=== PATIENT | female | born 1930 | race Caucasian/White ===

== ENCOUNTER 2017-10-13 18:32 | Emergency (ER) | payer MEDICARE, OTHER ==
[~2017-10-13] VITALS: Ht 167.6 cm; Wt 76.2 kg
[~2017-10-13 18:32] MED LIST: ACET325 PO; ACTOS; ALBU3IS INH; AMOCLA500 PO; ATOR10 PO; Albuterol2.5 MG/0.5 INH; BENZ100A PO; BUPR100ER PO; Bactrim Ds Tab1 EACH PO; CALCNI; CELE200 PO; CEPH500 PO; CHOL10002 PO; CVS DISPOSABLE399 ML UD; Citalopram HBr10 MG PO; Citrate Of Mag300 ML PO; DICLOFENAC; DILT240 PO; DOC250 PO; DOCU100 PO; DULO30 PO; DULO60 PO; ELIQUIS2.5 MG; ELIQUIS2.5 MG PO; ENDOCET; ERGO400; ERGO400 PO; EZET10 PO; EZET10-10 PO; EZET10-20 PO; FENT25TP TOP; Flomax0.4 MG PO; GABA100; GABA100 PO; GLIM2; GUAI600T33 PO; HYDACE5 PO; HYDROCODONE; KETO10 PO; Keflex500 MG PO; LAVAP17G PO; LEVFLO250 PO; LEVFLO500 PO; LISI10; LISI10 PO; LISI5 PO; LOPE2C PO; LORA.5 PO; Lopressor 25 mg25 MG PO; MELA3 PO; METF500; METF500 PO; METF500C PO; Multivitamin1 EAC1 PO; NITR100 PO; Norco 5-325 Ta1 EACH PO; OMEP40CA12 PO; ONDA8 PO; OXYACE5T; OXYACE5T PO; OXYACE7.5T; OXYACE7.5T PO; OXYC20ER PO; OXYC5 PO; Omeprazole20 M1 PO; Oxycodone HCl5 M1; PIOG45 PO; POLY17UD PO; PRED10 PO; PREG75; PROM25 PO; Percocet 5-3251 EACH PO; Percocet 7.5-31 EACH PO; Prinivil10 MG PO; QUIN10; RABE20 PO; ROSU10TA; SIMV20 PO; TAMS.4ER PO; TRAM50 PO; ULTRA-LIGHT RO1 EACH MC; VITORIN; WARF1; WARF10; WARF2.5 PO; WARF5; WARF5 PO; WARF7.5 PO; ZOLP10 PO; Zofran Odt4 MG SL; Zofran4 MG PO; [UNRECOGNIZED DRUG - OTHER]; [UNRECOGNIZED DRUG - REMARK]
[2018-03-09] MEDS ORDERED: Advair Hfa 230-12 GM INH (15:22)
[2018-03-09] MEDS ORDERED: BUPR100ER PO (15:23)
[2018-03-10] MEDS ORDERED: OXYC5 PO (01:25)
[2018-03-10] MEDS ORDERED: LEVFLO500 PO (14:05)
[2018-03-10] MEDS ORDERED: FURO20 PO (14:05)
[2018-03-10] MEDS ORDERED: Micro-K10 MEQ PO (14:08)
[2018-06-17] MEDS ORDERED: FURO40 PO (21:01)
[2018-06-17] MEDS ORDERED: DAIRY RELIE9000 UNIT PO (21:02)
[2018-06-18] MEDS ORDERED: ANTACID PLUS A355 M1 PO (08:22)
[2018-06-18] MEDS ORDERED: BISA10S PR (08:22)
[2018-06-18] MEDS ORDERED: Voltaren100 GM TOP (08:23)
[2018-06-18] MEDS ORDERED: ALBU3IS INH (08:24)
[2018-06-18] MEDS ORDERED: Senna Concentr8.6 MG PO (08:25)
[2018-06-18] MEDS ORDERED: Milk Of Ma400 MG/5 M PO (08:25)
[2018-06-18] MEDS ORDERED: LOPE2C PO (08:25)
[2018-06-21] MEDS ORDERED: DULERA 200 MCG/13 GM INH (15:02)
[2018-06-21] MEDS ORDERED: BENZ100A PO (15:12)
[2018-06-21] MEDS ORDERED: GUAI600T33 PO (15:13)
[2018-06-21] MEDS ORDERED: LEVOFLOXACIN250 MG PO (15:13)
[2018-06-21] MEDS ORDERED: Pedi-Dri 100,0060 GM TOP (15:14)
[2018-06-21] MEDS ORDERED: PRED20 (15:17)
== END 2017-10-13 20:32 | disposition home or self-care (01) ==
LOC: ER 18:32
DX: S52.572A Other intraarticular fracture of lower end of left radius, initial encounter for closed fracture (principal); E11.9 Type 2 diabetes mellitus without complications; I10 Essential (primary) hypertension; I48.91 Unspecified atrial fibrillation; F17.210 Nicotine dependence, cigarettes, uncomplicated; Z79.899 Other long term (current) drug therapy; Z96.641 Presence of right artificial hip joint; Z90.712 Acquired absence of cervix with remaining uterus; Z90.49 Acquired absence of other specified parts of digestive tract; W18.30XA Fall on same level, unspecified, initial encounter
CPT/HCPCS: 29125; 73080; 73110; 73130; 99283; J3010

== ENCOUNTER 2017-10-15 11:52 | Emergency (ER) | payer MEDICARE, OTHER ==
[~2017-10-15] VITALS: Ht 157.5 cm; Wt 77.1 kg
[2018-03-09] MEDS ORDERED: Advair Hfa 230-12 GM INH (15:22)
[2018-03-09] MEDS ORDERED: BUPR100ER PO (15:23)
[2018-03-10] MEDS ORDERED: OXYC5 PO (01:25)
[2018-03-10] MEDS ORDERED: FURO20 PO (14:05)
[2018-03-10] MEDS ORDERED: LEVFLO500 PO (14:05)
[2018-03-10] MEDS ORDERED: Micro-K10 MEQ PO (14:08)
[2018-06-17] MEDS ORDERED: FURO40 PO (21:01)
[2018-06-17] MEDS ORDERED: DAIRY RELIE9000 UNIT PO (21:02)
[2018-06-18] MEDS ORDERED: BISA10S PR (08:22)
[2018-06-18] MEDS ORDERED: ANTACID PLUS A355 M1 PO (08:22)
[2018-06-18] MEDS ORDERED: Voltaren100 GM TOP (08:23)
[2018-06-18] MEDS ORDERED: ALBU3IS INH (08:24)
[2018-06-18] MEDS ORDERED: Milk Of Ma400 MG/5 M PO (08:25)
[2018-06-18] MEDS ORDERED: LOPE2C PO (08:25)
[2018-06-18] MEDS ORDERED: Senna Concentr8.6 MG PO (08:25)
[2018-06-21] MEDS ORDERED: DULERA 200 MCG/13 GM INH (15:02)
[2018-06-21] MEDS ORDERED: BENZ100A PO (15:12)
[2018-06-21] MEDS ORDERED: GUAI600T33 PO (15:13)
[2018-06-21] MEDS ORDERED: LEVOFLOXACIN250 MG PO (15:13)
[2018-06-21] MEDS ORDERED: Pedi-Dri 100,0060 GM TOP (15:14)
[2018-06-21] MEDS ORDERED: PRED20 (15:17)
== END 2017-10-15 16:44 | disposition home or self-care (01) ==
LOC: ER 11:52
DX: T18.128A Food in esophagus causing other injury, initial encounter (principal); I10 Essential (primary) hypertension; E11.9 Type 2 diabetes mellitus without complications; I48.91 Unspecified atrial fibrillation; F17.210 Nicotine dependence, cigarettes, uncomplicated; Z79.899 Other long term (current) drug therapy; Z79.52 Long term (current) use of systemic steroids
CPT/HCPCS: 36415; 71046; 96374; 96375; 99283; J1610; J2060; J2405

== ENCOUNTER 2017-10-18 17:02 | Inpatient (IN) | payer MEDICARE, OTHER ==
[~2017-10-18] VITALS: Ht 167.6 cm; Wt 79.9 kg
[2017-10-18 18:46] LABS: Hematocrit 32.5 % (33.0-51.0); Hemoglobin 9.9 g/dL (11.5-16.0); Mean Corpuscular HGB 31.5 pg (26.0-34.0); Mean Corpuscular HGB Conc 30.5 g/dL (31.5-36.5); Mean Corpuscular Volume 104 fL (80-100); Mean Platelet Volume 9.3 fL (9.1-12.4); NRBC ABSOLUTE 0.04 K/mm3 (0.00-0.02); NRBC Auto 0.7 /100 WBC (0.0-0.2); Platelet Count 362 K/mm3 (150-400); RDW Coefficient Variation 15.5 % (11.7-14.2); RDW Standard Deviation 58.2 fL (35.1-46.3); Red Blood Cell Count 3.14 M/mm3 (3.80-5.20); White Blood Cell Count 6.11 K/mm3 (4.00-11.30)
[2017-10-18 19:15] LABS: Albumin, Blood 3.5 g/dL (3.4-5.0); Albumin/Globulin Ratio 0.9 (0.8-1.8); Bilirubin, Total 0.5 mg/dL (0.1-1.0); Bun/Creatinine Ratio 30.5 (12.0-20.0); Calcium, Blood 8.7 mg/dL (8.5-10.1); Creatinine, Blood 1.64 mg/dL (0.40-1.00); Globulin, Blood 3.8 g/dL (2.2-4.0); Magnesium, Blood 2.2 mg/dL (1.6-2.4); Phosphorus, Blood 4.5 mg/dL (2.5-4.9); Potassium, Blood 5.1 mmol/L (3.5-5.5); Total Protein, Blood 7.3 g/dL (6.4-8.2)
[2017-10-18 19:18] LABS: Thyroid Stimulating Hormone 1.72 uIU/mL (0.360-4.800)
[2017-10-19] MEDS ORDERED: ALBU3IS INH (00:23)
[2017-10-19] MEDS ORDERED: HYDR1TAB94 PO (00:27)
[2017-10-19 05:38] LABS: Bun/Creatinine Ratio 30.6 (12.0-20.0); Calcium, Blood 8.6 mg/dL (8.5-10.1); Creatinine, Blood 1.47 mg/dL (0.40-1.00); Potassium, Blood 4.5 mmol/L (3.5-5.5)
[2017-10-20 22:12] LABS: Source, Urine Clean Catch
[2017-10-20 22:15] LABS: Bilirubin, Urine Neg (Neg); Blood, Urine 5+ (Neg); Glucose Qualitative, Urine Neg (Neg); Ketones, Urine Neg (Neg); Leukocyte Esterase, Urine 3+ (Neg); Nitrite, Urine Neg (Neg); Protein, Urine 2+ (Neg); Urobilinogen, Urine NORM (Normal)
[2017-10-20 22:38] LABS: Appearance, Urine Cloudy (Clear); Color, Urine Yellow (P-Yellow)
[2017-10-20 22:39] LABS: Bacteria Mod /hpf; Squamous Epithelial Cells Few /hpf (Few)
[2017-10-21 05:32] LABS: BASOPHILS ABSOLUTE AUTO 0.02 K/mm3 (0.00-0.23); BASOPHILS PERCENT AUTO 0 % (0-2); EOSINOPHILS ABSOLUTE AUTO 0.03 K/mm3 (0.00-0.68); EOSINOPHILS PERCENT AUTO 0 % (0-6); Hematocrit 32.2 % (33.0-51.0); IMMATURE GRAN ABSOLUTE AUTO 0.05 K/mm3 (0.00-0.10); IMMATURE GRAN PERCENT AUTO 1 % (0-1); LYMPHOCYTES ABSOLUTE AUTO 1.31 K/mm3 (0.84-5.20); LYMPHOCYTES PERCENT AUTO 18 % (21-46); MONOCYTES ABSOLUTE AUTO 0.51 K/mm3 (0.16-1.47); MONOCYTES PERCENT AUTO 7 % (4-13); Mean Corpuscular HGB 31.3 pg (26.0-34.0); Mean Corpuscular HGB Conc 31.1 g/dL (31.5-36.5); NEUTROPHILS ABSOLUTE AUTO 5.53 K/mm3 (1.96-9.15); NEUTROPHILS PERCENT AUTO 74 % (41-73); NRBC ABSOLUTE 0.05 K/mm3 (0.00-0.02); NRBC Auto 0.7 /100 WBC (0.0-0.2); Platelet Count 375 K/mm3 (150-400); RDW Coefficient Variation 15.6 % (11.7-14.2); RDW Standard Deviation 56.5 fL (35.1-46.3); Red Blood Cell Count 3.19 M/mm3 (3.80-5.20); White Blood Cell Count 7.45 K/mm3 (4.00-11.30)
[2017-10-21 05:33] LABS: Mean Corpuscular Volume 101 fL (80-100)
[2017-10-21 06:17] LABS: Albumin, Blood 3.4 g/dL (3.4-5.0); Albumin/Globulin Ratio 0.9 (0.8-1.8); Bilirubin, Total 0.9 mg/dL (0.1-1.0); Bun/Creatinine Ratio 31.1 (12.0-20.0); Calcium, Blood 9.2 mg/dL (8.5-10.1); Creatinine, Blood 1.03 mg/dL (0.40-1.00); Globulin, Blood 3.8 g/dL (2.2-4.0); Potassium, Blood 4.8 mmol/L (3.5-5.5); Total Protein, Blood 7.2 g/dL (6.4-8.2); Troponin I 0.023 ng/mL (0.000-0.040)
[2017-10-22 05:33] LABS: BASOPHILS ABSOLUTE AUTO 0.02 K/mm3 (0.00-0.23); BASOPHILS PERCENT AUTO 0 % (0-2); EOSINOPHILS ABSOLUTE AUTO 0.07 K/mm3 (0.00-0.68); EOSINOPHILS PERCENT AUTO 1 % (0-6); Hematocrit 32.8 % (33.0-51.0); Hemoglobin 10.3 g/dL (11.5-16.0); IMMATURE GRAN ABSOLUTE AUTO 0.07 K/mm3 (0.00-0.10); IMMATURE GRAN PERCENT AUTO 1 % (0-1); LYMPHOCYTES ABSOLUTE AUTO 1.17 K/mm3 (0.84-5.20); LYMPHOCYTES PERCENT AUTO 14 % (21-46); MONOCYTES PERCENT AUTO 7 % (4-13); Mean Corpuscular HGB Conc 31.4 g/dL (31.5-36.5); Mean Corpuscular Volume 99 fL (80-100); Mean Platelet Volume 9.3 fL (9.1-12.4); NEUTROPHILS PERCENT AUTO 77 % (41-73); NRBC ABSOLUTE 0.04 K/mm3 (0.00-0.02); NRBC Auto 0.5 /100 WBC (0.0-0.2); Platelet Count 376 K/mm3 (150-400); RDW Coefficient Variation 15.9 % (11.7-14.2); RDW Standard Deviation 56.1 fL (35.1-46.3); Red Blood Cell Count 3.32 M/mm3 (3.80-5.20); White Blood Cell Count 8.23 K/mm3 (4.00-11.30)
[2017-10-22 06:03] LABS: Alanine Aminotransfer (ALT/SGP 18 U/L (12-78); Albumin, Blood 3.3 g/dL (3.4-5.0); Albumin/Globulin Ratio 0.8 (0.8-1.8); Alk Phos 81 U/L (50-136); Anion Gap 8 mmol/L (6-16); Aspartate Aminotrans (AST/SGOT 22 U/L (12-37); Bilirubin, Total 0.8 mg/dL (0.1-1.0); Blood Urea Nitrogen 27 mg/dL (8-24); Bun/Creatinine Ratio 29.4 (12.0-20.0); CO2, Blood 25 mmol/L (21-32); Chloride, Blood 108 mmol/L (98-108); Creatinine, Blood 0.92 mg/dL (0.40-1.00); Glomerular Filtration Rate >60 (60-); Glucose, Blood 111 mg/dL (70-99); Potassium, Blood 4.1 mmol/L (3.5-5.5); Sodium, Blood 141 mmol/L (136-145); Total Protein, Blood 7.3 g/dL (6.4-8.2)
[2017-10-23] MEDS ORDERED: BENZ100A PO (13:10)
[2017-10-23] MEDS ORDERED: ESCI10 PO (13:10)
[2017-10-23] MEDS ORDERED: BISA10S PR (13:10)
[2017-10-23] MEDS ORDERED: Senna-Extra17.2 MG PO (13:11)
[2017-10-23] MEDS ORDERED: CEFU250T47 PO (13:11)
[2017-10-23] MEDS ORDERED: Milk Of Ma400 MG/5 M PO (13:12)
[2018-03-09] MEDS ORDERED: Advair Hfa 230-12 GM INH (15:22)
[2018-03-09] MEDS ORDERED: BUPR100ER PO (15:23)
[2018-03-10] MEDS ORDERED: OXYC5 PO (01:25)
[2018-03-10] MEDS ORDERED: LEVFLO500 PO (14:05)
[2018-03-10] MEDS ORDERED: FURO20 PO (14:05)
[2018-03-10] MEDS ORDERED: Micro-K10 MEQ PO (14:08)
[2018-06-17] MEDS ORDERED: FURO40 PO (21:01)
[2018-06-17] MEDS ORDERED: DAIRY RELIE9000 UNIT PO (21:02)
[2018-06-18] MEDS ORDERED: ANTACID PLUS A355 M1 PO (08:22)
[2018-06-18] MEDS ORDERED: BISA10S PR (08:22)
[2018-06-18] MEDS ORDERED: Voltaren100 GM TOP (08:23)
[2018-06-18] MEDS ORDERED: ALBU3IS INH (08:24)
[2018-06-18] MEDS ORDERED: Milk Of Ma400 MG/5 M PO (08:25)
[2018-06-18] MEDS ORDERED: Senna Concentr8.6 MG PO (08:25)
[2018-06-18] MEDS ORDERED: LOPE2C PO (08:25)
[2018-06-21] MEDS ORDERED: DULERA 200 MCG/13 GM INH (15:02)
[2018-06-21] MEDS ORDERED: BENZ100A PO (15:12)
[2018-06-21] MEDS ORDERED: LEVOFLOXACIN250 MG PO (15:13)
[2018-06-21] MEDS ORDERED: GUAI600T33 PO (15:13)
[2018-06-21] MEDS ORDERED: Pedi-Dri 100,0060 GM TOP (15:14)
[2018-06-21] MEDS ORDERED: PRED20 (15:17)
== END 2017-10-23 13:02 | DRG 91 ==
LOC: MEDS 17:02 → ENPENDDIS 10-23 12:06 → MEDS 10-23 13:02
PROVIDERS: Family Medicine; Internal Medicine
DX: G92 Toxic encephalopathy (principal); J18.9 Pneumonia, unspecified organism; E11.22 Type 2 diabetes mellitus with diabetic chronic kidney disease; I48.2 Chronic atrial fibrillation; N18.3 Chronic kidney disease, stage 3 (moderate); J44.0 Chronic obstructive pulmonary disease with (acute) lower respiratory infection; J44.1 Chronic obstructive pulmonary disease with (acute) exacerbation; S52.502D Unspecified fracture of the lower end of left radius, subsequent encounter for closed fracture with routine healing; S62.002D Unspecified fracture of navicular [scaphoid] bone of left wrist, subsequent encounter for fracture with routine healing; T40.2X5A Adverse effect of other opioids, initial encounter; Y92.239 Unspecified place in hospital as the place of occurrence of the external cause; R53.81 Other malaise; F43.9 Reaction to severe stress, unspecified; I12.9 Hypertensive chronic kidney disease with stage 1 through stage 4 chronic kidney disease, or unspecified chronic kidney disease; M19.90 Unspecified osteoarthritis, unspecified site; F41.9 Anxiety disorder, unspecified; F32.9 Major depressive disorder, single episode, unspecified; I35.0 Nonrheumatic aortic (valve) stenosis; R33.9 Retention of urine, unspecified; W18.30XD Fall on same level, unspecified, subsequent encounter; Z60.8 Other problems related to social environment; Z66 Do not resuscitate; Z79.02 Long term (current) use of antithrombotics/antiplatelets; Z79.891 Long term (current) use of opiate analgesic; Z78.1 Physical restraint status; Z79.899 Other long term (current) drug therapy
CPT/HCPCS: 36415; 70450; 71046; 80048; 80053; 81001; 82140; 83605; 83735; 84100; 84443; 84484; 85025; 85027; 85651; 87086; 92610; 94640; 94760; 97116; 97162; 97166; 97530; 97535; G8978; G8979; G8987; G8988; G8996; G8997; G8998; J0696; J2060; J7030

== ENCOUNTER 2017-11-29 17:02 | Inpatient (IN) | payer MEDICARE, OTHER ==
[~2017-11-29] VITALS: Ht 167.6 cm; Wt 74.8 kg
[~2017-11-29 17:02] MED LIST changes: -ACET325 PO; +ACET500 PO; +BISA10S PR; +CEFU250T47 PO; +ESCI10 PO; +HYDR1TAB94 PO; +Milk Of Ma400 MG/5 M PO; +Omeprazole20 M1; -Omeprazole20 M1 PO; +Senna-Extra17.2 MG PO
[2017-11-29] MEDS ORDERED: ESCI20 PO (17:18)
[2017-11-29 17:58] LABS: Source, Urine Clean Catch
[2017-11-29 17:59] LABS: BASOPHILS ABSOLUTE AUTO 0.01 K/mm3 (0.00-0.23); BASOPHILS PERCENT AUTO 0 % (0-2); EOSINOPHILS PERCENT AUTO 2 % (0-6); Hematocrit 32.4 % (33.0-51.0); Hemoglobin 9.9 g/dL (11.5-16.0); IMMATURE GRAN ABSOLUTE AUTO 0.02 K/mm3 (0.00-0.10); IMMATURE GRAN PERCENT AUTO 0 % (0-1); LYMPHOCYTES ABSOLUTE AUTO 1.47 K/mm3 (0.84-5.20); LYMPHOCYTES PERCENT AUTO 25 % (21-46); MONOCYTES ABSOLUTE AUTO 0.37 K/mm3 (0.16-1.47); MONOCYTES PERCENT AUTO 6 % (4-13); Mean Corpuscular HGB 29.2 pg (26.0-34.0); Mean Corpuscular HGB Conc 30.6 g/dL (31.5-36.5); Mean Corpuscular Volume 96 fL (80-100); Mean Platelet Volume 9.1 fL (9.1-12.4); NEUTROPHILS ABSOLUTE AUTO 3.87 K/mm3 (1.96-9.15); NEUTROPHILS PERCENT AUTO 66 % (41-73); Platelet Count 395 K/mm3 (150-400); RDW Standard Deviation 51.9 fL (35.1-46.3); Red Blood Cell Count 3.39 M/mm3 (3.80-5.20); White Blood Cell Count 5.84 K/mm3 (4.00-11.30)
[2017-11-29 18:00] LABS: Appearance, Urine Hazy (Clear); Bilirubin, Urine Neg (Neg); Blood, Urine 5+ (Neg); Color, Urine Yellow (P-Yellow); Glucose Qualitative, Urine Neg (Neg); Ketones, Urine Neg (Neg); Leukocyte Esterase, Urine 2+ (Neg); Nitrite, Urine Neg (Neg); Protein, Urine 2+ (Neg); Urobilinogen, Urine 2+ (Normal)
[2017-11-29 18:08] LABS: Bacteria Mod /hpf; Red Blood Cells, Urine 25-50 /hpf (0-2); Squamous Epithelial Cells Mod /hpf (Few)
[2017-11-29 18:16] LABS: Albumin, Blood 3.3 g/dL (3.4-5.0); Albumin/Globulin Ratio 0.9 (0.8-1.8); Bilirubin, Total 0.4 mg/dL (0.1-1.0); Bun/Creatinine Ratio 24.2 (12.0-20.0); Creatinine, Blood 1.2 mg/dL (0.40-1.00); Globulin, Blood 3.8 g/dL (2.2-4.0); Potassium, Blood 4.4 mmol/L (3.5-5.5); Total Protein, Blood 7.1 g/dL (6.4-8.2)
[2017-11-30 05:41] LABS: Bun/Creatinine Ratio 23.4 (12.0-20.0); Calcium, Blood 8.5 mg/dL (8.5-10.1); Creatinine, Blood 1.07 mg/dL (0.40-1.00)
[2017-12-06 05:46] LABS: Bun/Creatinine Ratio 23.6 (12.0-20.0); Calcium, Blood 9.1 mg/dL (8.5-10.1); Creatinine, Blood 1.1 mg/dL (0.40-1.00)
[2017-12-07] MEDS ORDERED: QUET25 PO (11:27)
== END 2017-12-07 12:05 | disposition hospice, home (50) | DRG 885 ==
LOC: ER 17:02 → MEDS 17:03 → ENPENDDIS 12-07 10:11 → MEDS 12-07 12:05
PROVIDERS: Emergency Medicine; Internal Medicine; Student in an Organized Health Care Education/Training Program
DX: F33.0 Major depressive disorder, recurrent, mild (principal); N17.9 Acute kidney failure, unspecified; I48.91 Unspecified atrial fibrillation; B96.1 Klebsiella pneumoniae [K. pneumoniae] as the cause of diseases classified elsewhere; N39.0 Urinary tract infection, site not specified; B96.89 Other specified bacterial agents as the cause of diseases classified elsewhere; F43.21 Adjustment disorder with depressed mood; R91.8 Other nonspecific abnormal finding of lung field; N18.3 Chronic kidney disease, stage 3 (moderate); I12.9 Hypertensive chronic kidney disease with stage 1 through stage 4 chronic kidney disease, or unspecified chronic kidney disease; F17.210 Nicotine dependence, cigarettes, uncomplicated
CPT/HCPCS: 36415; 71046; 80048; 80053; 81001; 82947; 83605; 85025; 87040; 87077; 87086; 87186; 94640; 94760; 96374; 97110; 97116; 97163; 97166; 97530; 97535; 99285; G8978; G8979; G8987; G8988; J1956; J7030

== ENCOUNTER 2018-03-23 15:45 | Emergency (ER) | payer MEDICARE, OTHER ==
[~2018-03-23] VITALS: Ht 167.6 cm; Wt 74.4 kg
[~2018-03-23 15:45] MED LIST changes: +ACET325 PO; -ACET500 PO; +Advair Hfa 230-12 GM; +ESCI20 PO; +FURO20 PO; +Micro-K10 MEQ PO; +OXYC5; +QUET25 PO
[2018-03-23 16:15] LABS: BASOPHILS ABSOLUTE AUTO 0.01 K/mm3 (0.00-0.23); BASOPHILS PERCENT AUTO 0 % (0-2); EOSINOPHILS ABSOLUTE AUTO 0.18 K/mm3 (0.00-0.68); EOSINOPHILS PERCENT AUTO 3 % (0-6); Hemoglobin 9.5 g/dL (11.5-16.0); IMMATURE GRAN ABSOLUTE AUTO 0.03 K/mm3 (0.00-0.10); IMMATURE GRAN PERCENT AUTO 0 % (0-1); LYMPHOCYTES ABSOLUTE AUTO 2.16 K/mm3 (0.84-5.20); LYMPHOCYTES PERCENT AUTO 32 % (21-46); MONOCYTES ABSOLUTE AUTO 0.47 K/mm3 (0.16-1.47); MONOCYTES PERCENT AUTO 7 % (4-13); Mean Corpuscular HGB 26.9 pg (26.0-34.0); Mean Corpuscular HGB Conc 30.6 g/dL (31.5-36.5); Mean Corpuscular Volume 88 fL (80-100); Mean Platelet Volume 9.1 fL (9.1-12.4); NEUTROPHILS ABSOLUTE AUTO 3.82 K/mm3 (1.96-9.15); NEUTROPHILS PERCENT AUTO 57 % (41-73); Platelet Count 317 K/mm3 (150-400); RDW Coefficient Variation 18.9 % (11.7-14.2); RDW Standard Deviation 59.9 fL (35.1-46.3); Red Blood Cell Count 3.53 M/mm3 (3.80-5.20); White Blood Cell Count 6.67 K/mm3 (4.00-11.30)
[2018-03-23 16:29] LABS: Alanine Aminotransfer (ALT/SGP 9 U/L (12-78); Albumin, Blood 3.5 g/dL (3.4-5.0); Alk Phos 67 U/L (50-136); Anion Gap 8 mmol/L (6-16); Aspartate Aminotrans (AST/SGOT 11 U/L (12-37); Bilirubin, Total 0.3 mg/dL (0.1-1.0); Blood Urea Nitrogen 36 mg/dL (8-24); Bun/Creatinine Ratio 26.3 (12.0-20.0); CO2, Blood 24 mmol/L (21-32); Calcium, Blood 8.5 mg/dL (8.5-10.1); Chloride, Blood 112 mmol/L (98-108); Creatinine, Blood 1.37 mg/dL (0.40-1.00); Globulin, Blood 3.5 g/dL (2.2-4.0); Glomerular Filtration Rate 39 (60-); Glucose, Blood 115 mg/dL (70-99); Potassium, Blood 4.7 mmol/L (3.5-5.5); Sodium, Blood 144 mmol/L (136-145); Troponin I <0.015 ng/mL (0.000-0.040)
[2018-03-23] MEDS ORDERED: FURO20 PO (18:20)
== END 2018-03-23 19:33 | disposition home or self-care (01) ==
LOC: ER 15:45
PROVIDERS: Internal Medicine
DX: R07.89 Other chest pain (principal); I13.0 Hypertensive heart and chronic kidney disease with heart failure and stage 1 through stage 4 chronic kidney disease, or unspecified chronic kidney disease; E11.22 Type 2 diabetes mellitus with diabetic chronic kidney disease; N18.3 Chronic kidney disease, stage 3 (moderate); I50.32 Chronic diastolic (congestive) heart failure; I48.91 Unspecified atrial fibrillation; F17.200 Nicotine dependence, unspecified, uncomplicated; Z88.0 Allergy status to penicillin; Z88.8 Allergy status to other drugs, medicaments and biological substances; Z79.899 Other long term (current) drug therapy
CPT/HCPCS: 36415; 71046; 80053; 83880; 84484; 85025; 93005; 93010; 99285-25

== ENCOUNTER 2018-10-02 16:40 | Observation (INO) | payer MEDICARE, OTHER ==
[~2018-10-02] VITALS: Ht 157.5 cm; Wt 83.0 kg
[~2018-10-02 16:40] MED LIST changes: +ANTACID PLUS A355 M1 PO; -Advair Hfa 230-12 GM; +Advair Hfa 230-12 GM INH; +DAIRY RELIE9000 UNIT PO; +DULERA 200 MCG/13 GM INH; +FURO40 PO; +LEVOFLOXACIN250 MG PO; -OXYC5; -Omeprazole20 M1; +Omeprazole20 M1 PO; +PRED20; +Pedi-Dri 100,0060 GM TOP; +Senna Concentr8.6 MG PO; +Voltaren100 GM TOP
[2018-10-02] MEDS ORDERED: BUPR100ER PO (17:02)
[2018-10-02] MEDS ORDERED: ESCI20 PO (17:02)
[2018-10-02] MEDS ORDERED: DULERA 200 MCG/13 GM INH ×2 (17:02→17:25)
[2018-10-02] MEDS ORDERED: Acetaminophen325 M1 PO (17:02)
[2018-10-02] MEDS ORDERED: ATOR10 PO (17:02)
[2018-10-02] MEDS ORDERED: FURO40 PO (17:03)
[2018-10-02] MEDS ORDERED: LISI20 PO (17:04)
[2018-10-02] MEDS ORDERED: MAGOXI400 PO (17:04)
[2018-10-02] MEDS ORDERED: DAIRY DIGES9000 UNI1 PO (17:04)
[2018-10-02] MEDS ORDERED: METO25ER PO (17:05)
[2018-10-02] MEDS ORDERED: OMEPRAZOLE MAGN20 MG PO (17:07)
[2018-10-02] MEDS ORDERED: QUET25 PO (17:07)
[2018-10-02] MEDS ORDERED: BENZ100A PO (17:18)
[2018-10-02] MEDS ORDERED: NYST100000 TOP (17:18)
[2018-10-02] MEDS ORDERED: Atrovent Inha12.9 GM INH (17:18)
[2018-10-02] MEDS ORDERED: GUAI600T33 PO (17:20)
[2018-10-02] MEDS ORDERED: LOPE2C PO (17:20)
[2018-10-02] MEDS ORDERED: ONDA4 PO (17:21)
[2018-10-02] MEDS ORDERED: Oxycodone HCl5 M1 PO (17:22)
[2018-10-02] MEDS ORDERED: POTCHL10ER PO (17:24)
[2018-10-02 20:06] LABS: BASOPHILS ABSOLUTE AUTO 0.02 K/mm3 (0.00-0.23); BASOPHILS PERCENT AUTO 0 % (0-2); EOSINOPHILS ABSOLUTE AUTO 0.08 K/mm3 (0.00-0.68); EOSINOPHILS PERCENT AUTO 1 % (0-6); Hematocrit 34.2 % (33.0-51.0); Hemoglobin 10.3 g/dL (11.5-16.0); IMMATURE GRAN ABSOLUTE AUTO 0.07 K/mm3 (0.00-0.10); IMMATURE GRAN PERCENT AUTO 1 % (0-1); LYMPHOCYTES ABSOLUTE AUTO 1.59 K/mm3 (0.84-5.20); LYMPHOCYTES PERCENT AUTO 14 % (21-46); MONOCYTES ABSOLUTE AUTO 0.43 K/mm3 (0.16-1.47); MONOCYTES PERCENT AUTO 4 % (4-13); Mean Corpuscular HGB 27.6 pg (26.0-34.0); Mean Corpuscular HGB Conc 30.1 g/dL (31.5-36.5); Mean Corpuscular Volume 92 fL (80-100); NEUTROPHILS PERCENT AUTO 81 % (41-73); NRBC ABSOLUTE 0.02 K/mm3 (0.00-0.02); NRBC Auto 0.2 /100 WBC (0.0-0.2); Platelet Count 296 K/mm3 (150-400); RDW Coefficient Variation 19.5 % (11.7-14.2); RDW Standard Deviation 66.5 fL (35.1-46.3); Red Blood Cell Count 3.73 M/mm3 (3.80-5.20); White Blood Cell Count 11.19 K/mm3 (4.00-11.30)
[2018-10-02 20:24] LABS: Albumin, Blood 3.6 g/dL (3.4-5.0); Albumin/Globulin Ratio 0.9 (0.8-1.8); Bilirubin, Total 0.4 mg/dL (0.1-1.0); Bun/Creatinine Ratio 26.1 (12.0-20.0); Calcium, Blood 8.9 mg/dL (8.5-10.1); Creatinine, Blood 1.57 mg/dL (0.40-1.00); Globulin, Blood 3.8 g/dL (2.2-4.0); Potassium, Blood 4.6 mmol/L (3.5-5.5); Total Protein, Blood 7.4 g/dL (6.4-8.2)
--- NOTE | 2018-10-02 22:00 | NUR ---
PATIENT ARRIVED TO ROOM VIA STRETCHER BY ANGELINA HARRIS. PATIENT IS AWAKE, RESPIRATIONS 20. USED A SLIDER TO TRANSFER PATIENT TO BED. PATIENT WAS ABLE TO ROLL ONTO HER RIGHT SIDE TO REMOVE LINEN. PATIENT DOES NOT COMPLAIN OF PAIN AT THIS TIME. PATIENT RESPONDS TO YES OR NO ANSWERS. CALL LIGHT WITHIN REACH, BED LOWERED AND LOCKED.
--- NOTE | 2018-10-03 04:30 | NUR ---
*SHIFT SUMMARY* PATIENT IS ALERT AND CONFUSED. PATIENT SLEPT OFF AND ON THROUGHOUT THE NIGHT. PATIENT HAS A MEPLIX DRESSING ON LEFT ELBOW OVER A SKIN TEAR FROM HER FALL AT HOME. PATIENT WAS INCONTINENT OF URINE. PATIENT HAS HAD NO COMPLAINTS OF PAIN FOR ME. PATIENT REQUESTS ICE CHIPS TO KEEP MOUTH MOIST. CALL LIGHT WITHIN REACH, BED LOWERED AND LOCKED WITH ALARM ON.
--- NOTE | 2018-10-03 17:35 | NUR ---
SHIFT SUMMARY PT HAS HAD NO ACUTE CHANGES THIS SHIFT, MEDICATED 3X FOR PAIN, 1X FOR ANXIETY. SON SPENT 30 MINS AT BEDSIDE THIS AFTERNOON. PT APPEAR TO BE SLEEPING AT THIS TIME, WILL CONT TO MONITOR UNTIL REPORT GIVEN TO MICAELA RN.
--- NOTE | 2018-10-04 03:52 | NUR ---
SHIFT SUMMARY NO ACUTE CHANGES THIS SHIFT. PT FEARFUL OF BEING PAINFUL. REQUESTED HEATING PAD FOR COMFORT. K PAD PROVIDED. PAINFUL IN PELVIS, ESPECIALLY W/ MOVEMENT. MEDICATED X 1 W/ 5 MG ROXICODONE AND 650 MG TYLENOL. PT HAS BEEN SLEEPING COMFORTABLY SINCE MEDICATED. DRESSING TO L ELBOW INTACT. PT REMAINED INCONTINENT. ATTENDS IN PLACE. TURNED AND CHANGED NEEDED. LOW URINE OUTPUT. PT DRANK 1 CLEAR ENSURE, REFUSED TO DRINK ANY WATER BUT SUCKED ON ICE CHIPS INTERMITTENTLY. VSS. WILL CONTINUE TO MONITOR AND REPORT TO DAY RN.
--- NOTE | 2018-10-04 05:28 | NUR ---
PT HAD VOIDED VERY LITTLE THROUGHOUT THE NIGHT. BLADDER SCAN DONE AND SHOWED 582 ML. PT SHORTLY AFTER HAD AN INCONTINENT VOID. BLADDER SCANNED PATIENT POST VOID AND SCAN SHOWED [address] GONCALVES. NO NEW ORDERS AT THIS TIME. DR. GONCALVES STATED NO CHRISTIAN CATHETER UNLESS GREATER THAN 600 ML.
--- NOTE | 2018-10-04 18:28 | NUR ---
SHIFT SUMMARY PT HAS HAD NO ACUTE CHANGES THIS SHIFT, MEDICATED 2X FOR PAIN/ANXIETY, NO OTHER COMPLAINTS. PT IS BEDRESTING AT THIS TIME, WILL CONT TO MONITOR UNTIL REPORT GIVEN TO MICAELA RN.
--- NOTE | 2018-10-05 07:11 | NUR ---
SHIFT SUMMARY PT CONFUSED YELLING OUT. MEDICATED FOR PAIN X2 AND ANXIETY X1. INCONT OF URINE. PULLS OFF GOWN AND O2 NC. DESATS WHEN SHE PULLS OFF O2. SOME HALLUCINATIONS AT TIMES GRABBING AT THINGS AND SEEING A MAN. BED ALARM IN USE. MOVED TO ROOM 353 AND REPORT GIVEN TO SERENA HARRIS.
--- NOTE | 2018-10-05 18:25 | NUR ---
SHIFT SUMMARY: NO ACUTE CHANGES TO REPORT THIS SHIFT. PT HX ALZHEIMER'S DEMENTIA; ALERT; CONFUSED; ORIENTED TO SELF. PELVIC FX; MEDICATED FOR PAIN PER EMAR. ASPIRATION PRECAUTIONS; MEDS WHOLE IN APPLE SAUCE. EXPECTED D/C TO [facility] ON SATURDAY 10/07. WCTM.
--- NOTE | 2018-10-06 04:47 | NUR ---
SHIFT SUMMARY PT REMAINS CONFUSED AND EMOTIONAL. AT BEGINNING OF SHIFT PT WAS FOUND NAKED WITH HER GOWN OFF. PT DID FALL ASLEEP AND SLEPT WELL. PT HAD ADDITIONAL EPISODES OF REMOVING GOWN AND CRYING. PT WAS DRESSED AND ABLE TO FALL ASLEEP EASILY. PT HAS NO ACUTE ISSUES NOTED. PT HAS DENIED HAVING PAIN. PT HAD SOME HEEL PROTECTORS PLACED. PT IS CURRENTLY SLEEPING AND BREATHING EASY. BED ALARM ARMED AND CALL LIGHT IN REACH.
[2018-10-06 05:26] LABS: BASOPHILS PERCENT AUTO 0 % (0-2); EOSINOPHILS PERCENT AUTO 0 % (0-6); Hematocrit 28.2 % (33.0-51.0); Hemoglobin 8.4 g/dL (11.5-16.0); IMMATURE GRAN ABSOLUTE AUTO 0.04 K/mm3 (0.00-0.10); IMMATURE GRAN PERCENT AUTO 1 % (0-1); LYMPHOCYTES ABSOLUTE AUTO 0.49 K/mm3 (0.84-5.20); LYMPHOCYTES PERCENT AUTO 9 % (21-46); MONOCYTES ABSOLUTE AUTO 0.15 K/mm3 (0.16-1.47); MONOCYTES PERCENT AUTO 3 % (4-13); Mean Corpuscular HGB 27.9 pg (26.0-34.0); Mean Corpuscular HGB Conc 29.8 g/dL (31.5-36.5); Mean Corpuscular Volume 94 fL (80-100); Mean Platelet Volume 9.5 fL (9.1-12.4); NEUTROPHILS ABSOLUTE AUTO 4.73 K/mm3 (1.96-9.15); NEUTROPHILS PERCENT AUTO 87 % (41-73); NRBC ABSOLUTE 0.03 K/mm3 (0.00-0.02); NRBC Auto 0.6 /100 WBC (0.0-0.2); Platelet Count 262 K/mm3 (150-400); RDW Coefficient Variation 18.8 % (11.7-14.2); RDW Standard Deviation 64.8 fL (35.1-46.3); Red Blood Cell Count 3.01 M/mm3 (3.80-5.20); White Blood Cell Count 5.41 K/mm3 (4.00-11.30)
[2018-10-06 06:03] LABS: Albumin, Blood 3.1 g/dL (3.4-5.0); Anion Gap 12 mmol/L (6-16); Blood Urea Nitrogen 65 mg/dL (8-24); CO2, Blood 20 mmol/L (21-32); Calcium, Blood 8.6 mg/dL (8.5-10.1); Chloride, Blood 106 mmol/L (98-108); Creatinine, Blood 1.91 mg/dL (0.40-1.00); Glomerular Filtration Rate 26 (60-); Glucose, Blood 141 mg/dL (70-99); Phosphorus, Blood 5.5 mg/dL (2.5-4.9); Potassium, Blood 5.1 mmol/L (3.5-5.5); Sodium, Blood 138 mmol/L (136-145)
--- NOTE | 2018-10-06 19:10 | NUR ---
SHIFT SUMMARY: NO ACUTE CHANGES TO REPORT THIS SHIFT. PT REMAINS CONFUSED R/T HX ALZHEIMER'S DEMENTIA; EMOTIONAL. MEDICATED FOR PELVIC PAIN PER EMAR. 1L NS THIS SHIFT; PT VOIDING SPONTANEOUSLY. PO MEDS WHOLE IN APPLE SAUCE. EXPECTED D/C TO SNF ([facility]) ON SUNDAY, 10/07. REPORT GIVEN TO ONCOMING RN.
[2018-10-07 04:52] LABS: BASOPHILS PERCENT AUTO 0 % (0-2); EOSINOPHILS PERCENT AUTO 0 % (0-6); Hematocrit 28.7 % (33.0-51.0); Hemoglobin 8.6 g/dL (11.5-16.0); IMMATURE GRAN ABSOLUTE AUTO 0.06 K/mm3 (0.00-0.10); IMMATURE GRAN PERCENT AUTO 1 % (0-1); LYMPHOCYTES ABSOLUTE AUTO 0.44 K/mm3 (0.84-5.20); LYMPHOCYTES PERCENT AUTO 6 % (21-46); MONOCYTES ABSOLUTE AUTO 0.26 K/mm3 (0.16-1.47); MONOCYTES PERCENT AUTO 3 % (4-13); Mean Corpuscular HGB 27.6 pg (26.0-34.0); Mean Corpuscular Volume 92 fL (80-100); Mean Platelet Volume 9.4 fL (9.1-12.4); NEUTROPHILS ABSOLUTE AUTO 6.95 K/mm3 (1.96-9.15); NEUTROPHILS PERCENT AUTO 90 % (41-73); NRBC ABSOLUTE 0.07 K/mm3 (0.00-0.02); NRBC Auto 0.9 /100 WBC (0.0-0.2); Platelet Count 311 K/mm3 (150-400); RDW Coefficient Variation 19.1 % (11.7-14.2); RDW Standard Deviation 62.6 fL (35.1-46.3); Red Blood Cell Count 3.12 M/mm3 (3.80-5.20); White Blood Cell Count 7.71 K/mm3 (4.00-11.30)
[2018-10-07 05:29] LABS: Anion Gap 10 mmol/L (6-16); Blood Urea Nitrogen 79 mg/dL (8-24); Bun/Creatinine Ratio 46.5 (12.0-20.0); CO2, Blood 22 mmol/L (21-32); Calcium, Blood 8.4 mg/dL (8.5-10.1); Chloride, Blood 105 mmol/L (98-108); Glomerular Filtration Rate 30 (60-); Glucose, Blood 192 mg/dL (70-99); Potassium, Blood 5.1 mmol/L (3.5-5.5); Sodium, Blood 137 mmol/L (136-145)
--- NOTE | 2018-10-07 11:28 | NUR ---
PERMISSION FOR CARE Patient gave manager nursing permission to assist in providing care on 10/08/2018 from [phone]. SN Mariam
[2018-10-07 17:38] LABS: Source, Urine Clean Catch
[2018-10-07 17:45] LABS: Bilirubin, Urine Neg (Neg); Blood, Urine 2+ (Neg); Glucose Qualitative, Urine Neg (Neg); Ketones, Urine Neg (Neg); Leukocyte Esterase, Urine 2+ (Neg); Nitrite, Urine Neg (Neg); Protein, Urine Neg (Neg); Specific Gravity, Urine 1.015 (1.003-1.022); Urobilinogen, Urine NORM (Normal)
--- NOTE | 2018-10-07 18:19 | NUR ---
SHIFT SUMMARY PT AXO TO SELF, PLACE AND FOLLOWING DIRECTIONS THOUGH IS VERY CONFUSED AT TIMES. PT UP TO BSC X1 TO VOID, OTHERWISE INCONTINENT. PT MEDICATED PER EMAR FOR PAIN. NO ACUTE CHANGES THIS SHIFT. VITAL SIGNS STABLE IV PATENT AND SALINE LOCKED. BED IN LOW POSITION, CALL LIGHT WITHIN REACH. BED ALARM ON.
[2018-10-07 18:29] LABS: Appearance, Urine Clear (Clear); Color, Urine Yellow (P-Yellow); White Blood Cells, Urine 25-50 /hpf (0-5)
[2018-10-07 18:30] LABS: Bacteria Few /hpf; Squamous Epithelial Cells Few /hpf (Few)
[2018-10-08 05:29] LABS: BASOPHILS ABSOLUTE AUTO 0.01 K/mm3 (0.00-0.23); BASOPHILS PERCENT AUTO 0 % (0-2); EOSINOPHILS PERCENT AUTO 0 % (0-6); Hematocrit 29.3 % (33.0-51.0); IMMATURE GRAN ABSOLUTE AUTO 0.13 K/mm3 (0.00-0.10); IMMATURE GRAN PERCENT AUTO 2 % (0-1); LYMPHOCYTES ABSOLUTE AUTO 0.52 K/mm3 (0.84-5.20); LYMPHOCYTES PERCENT AUTO 7 % (21-46); MONOCYTES ABSOLUTE AUTO 0.22 K/mm3 (0.16-1.47); MONOCYTES PERCENT AUTO 3 % (4-13); Mean Corpuscular HGB 28.4 pg (26.0-34.0); Mean Corpuscular HGB Conc 30.7 g/dL (31.5-36.5); Mean Corpuscular Volume 92 fL (80-100); Mean Platelet Volume 9.2 fL (9.1-12.4); NEUTROPHILS ABSOLUTE AUTO 6.41 K/mm3 (1.96-9.15); NEUTROPHILS PERCENT AUTO 88 % (41-73); NRBC ABSOLUTE 0.06 K/mm3 (0.00-0.02); NRBC Auto 0.8 /100 WBC (0.0-0.2); Platelet Count 330 K/mm3 (150-400); RDW Coefficient Variation 19.4 % (11.7-14.2); RDW Standard Deviation 64.8 fL (35.1-46.3); Red Blood Cell Count 3.17 M/mm3 (3.80-5.20); White Blood Cell Count 7.29 K/mm3 (4.00-11.30)
--- NOTE | 2018-10-08 06:45 | NUR ---
trouble sleeping but finally was resting quietly, took meds as prescribed, a+o and cooprative, call light in reach, saline locked, on room air, anxious about what will be happening to her since she is still unable to walk
--- NOTE | 2018-10-08 12:13 | NUR ---
NO IV OK DR. CARROLL CALLED AT 0900 AND ASKED ABOUT IV ACCESS. STATED THAT SOLUMETEROL IS NO LONGER NEEDED AND AM DOSE CAN BE DC'D.
[2018-10-08] MEDS ORDERED: PRED20 PO (14:17)
[2018-10-08] MEDS ORDERED: MIRALAX17 GM PO (14:18)
[2018-10-08] MEDS ORDERED: Nicoderm Cq1 EAC1 TD (14:19)
--- NOTE | 2018-10-08 15:02 | NUR ---
[facility] REPORT TALKED WITH [facility] NURSE ABOUT PT DISCHARGE. CV, RN HAS FURTHER QUESTIONS ON PT CONDITION BEFORE DC. [facility] SOFT DIET WAS ORDERED & PT/HOME HEALTH WILL BE FOLLOWING WITH THE PT.
--- NOTE | 2018-10-08 16:46 | NUR ---
PT DISCHARGED PT DISCHARGED AT 1646. PT IN STABLE CONDITION WITH VSS. PT WHEELED OUT BY [facility] AND DRIVEN TO [facility]. [facility] AWARE OF DC & EXPECTING PT. PT STATED NO FURTHER QUESTIONS ABOUT DC INSTRUCTIONS.
[2018-10-09] MEDS ORDERED: OXYC10ER PO (06:10)
== END 2018-10-08 16:46 | disposition home or self-care (01) ==
LOC: ER 16:40 → MEDS 20:35 → ENPENDDIS 10-07 11:18 → EDPENDDIS 10-07 11:18 → MEDS 10-08 16:46
PROVIDERS: Emergency Medicine; Internal Medicine Endocrinology, Diabetes & Metabolism; ADMIT Hospitalist
DX: S32.592A Other specified fracture of left pubis, initial encounter for closed fracture (principal); S32.10XA Unspecified fracture of sacrum, initial encounter for closed fracture; D50.0 Iron deficiency anemia secondary to blood loss (chronic); J44.1 Chronic obstructive pulmonary disease with (acute) exacerbation; I13.0 Hypertensive heart and chronic kidney disease with heart failure and stage 1 through stage 4 chronic kidney disease, or unspecified chronic kidney disease; I50.32 Chronic diastolic (congestive) heart failure; E11.22 Type 2 diabetes mellitus with diabetic chronic kidney disease; N18.3 Chronic kidney disease, stage 3 (moderate); I48.91 Unspecified atrial fibrillation; N17.9 Acute kidney failure, unspecified; I63.9 Cerebral infarction, unspecified; I35.0 Nonrheumatic aortic (valve) stenosis; F03.90 Unspecified dementia, unspecified severity, without behavioral disturbance, psychotic disturbance, mood disturbance, and anxiety; F17.210 Nicotine dependence, cigarettes, uncomplicated; E78.5 Hyperlipidemia, unspecified; M81.0 Age-related osteoporosis without current pathological fracture; Z88.0 Allergy status to penicillin; Z88.8 Allergy status to other drugs, medicaments and biological substances; Z79.899 Other long term (current) drug therapy; W18.39XA Other fall on same level, initial encounter
CPT/HCPCS: 36415; 71046; 72100; 72131; 73080; 73502; 80053; 80069; 81001; 82550; 85025; 94640; 94760; 94762; 96361; 96372; 96374; 96375; 96376; 97110; 97116; 97162; 97166; 97530; 99285-25; G0378; J1650; J2270; J2920; J2930; J3010; J7030

== ENCOUNTER 2018-10-09 16:27 | Inpatient (IN) | payer MEDICARE, OTHER ==
[~2018-10-09] VITALS: Ht 160 cm; Wt 79.1 kg
[~2018-10-09 16:27] MED LIST changes: +Acetaminophen325 M1 PO; +Atrovent Inha12.9 GM INH; +DAIRY DIGES9000 UNI1 PO; +LISI20 PO; +MAGOXI400 PO; +METO25ER PO; +MIRALAX17 GM PO; +NYST100000 TOP; +Nicoderm Cq1 EAC1 TD; +OMEPRAZOLE MAGN20 MG PO; +ONDA4 PO; +OXYC10ER PO; +Oxycodone HCl5 M1 PO; +POTCHL10ER PO; +PRED20 PO
[2018-10-09 18:03] LABS: BASOPHILS ABSOLUTE AUTO 0.01 K/mm3 (0.00-0.23); BASOPHILS PERCENT AUTO 0 % (0-2); EOSINOPHILS ABSOLUTE AUTO 0.01 K/mm3 (0.00-0.68); EOSINOPHILS PERCENT AUTO 0 % (0-6); Hematocrit 32.7 % (33.0-51.0); Hemoglobin 9.9 g/dL (11.5-16.0); IMMATURE GRAN ABSOLUTE AUTO 0.17 K/mm3 (0.00-0.10); IMMATURE GRAN PERCENT AUTO 2 % (0-1); LYMPHOCYTES ABSOLUTE AUTO 0.87 K/mm3 (0.84-5.20); LYMPHOCYTES PERCENT AUTO 10 % (21-46); MONOCYTES ABSOLUTE AUTO 0.53 K/mm3 (0.16-1.47); MONOCYTES PERCENT AUTO 6 % (4-13); Mean Corpuscular HGB 28.3 pg (26.0-34.0); Mean Corpuscular HGB Conc 30.3 g/dL (31.5-36.5); Mean Corpuscular Volume 93 fL (80-100); Mean Platelet Volume 9.2 fL (9.1-12.4); NEUTROPHILS ABSOLUTE AUTO 6.99 K/mm3 (1.96-9.15); NEUTROPHILS PERCENT AUTO 82 % (41-73); NRBC ABSOLUTE 0.07 K/mm3 (0.00-0.02); NRBC Auto 0.8 /100 WBC (0.0-0.2); Platelet Count 363 K/mm3 (150-400); RDW Coefficient Variation 19.8 % (11.7-14.2); RDW Standard Deviation 66.1 fL (35.1-46.3); White Blood Cell Count 8.58 K/mm3 (4.00-11.30)
[2018-10-09 18:18] LABS: Albumin, Blood 3.4 g/dL (3.4-5.0); Albumin/Globulin Ratio 0.9 (0.8-1.8); Bilirubin, Total 0.8 mg/dL (0.1-1.0); Bun/Creatinine Ratio 45.4 (12.0-20.0); Calcium, Blood 8.9 mg/dL (8.5-10.1); Creatinine, Blood 1.52 mg/dL (0.40-1.00); Globulin, Blood 3.7 g/dL (2.2-4.0); Potassium, Blood 5.4 mmol/L (3.5-5.5); Total Protein, Blood 7.1 g/dL (6.4-8.2)
[2018-10-09 18:22] LABS: International Normalized Ratio 0.97; Prothrombin Time Results 10.3 Sec (9.7-11.5)
--- NOTE | 2018-10-09 22:00 | NUR ---
2200: PT ARRIVES TO ROOM 344 VIA GOURNEY FROM ER AND IS 3 PERSON SLIDE SHEET TRANSFERRED TO BED; TOW. SOILED LINENS REMOVED, PT PLACED IN GOWN AND ATTENDS CHANGED AFTER SKIN AND PARVIZ CARE. PT HOB ELEVATED PER HER REQUEST FOR COMFORT AND SOB, 2L O2 VIA NC PLACED TO MAINTAIN SPO2 >92%. CALL LIGHT, BED ALARM AND OVERBED TABLE PLACED IN REACH.
[2018-10-10 05:16] LABS: Hematocrit 30.9 % (33.0-51.0); Mean Corpuscular HGB 28.3 pg (26.0-34.0); Mean Corpuscular HGB Conc 29.1 g/dL (31.5-36.5); NRBC ABSOLUTE 0.07 K/mm3 (0.00-0.02); NRBC Auto 0.9 /100 WBC (0.0-0.2); Platelet Count 293 K/mm3 (150-400); RDW Coefficient Variation 19.7 % (11.7-14.2); RDW Standard Deviation 69.7 fL (35.1-46.3); Red Blood Cell Count 3.18 M/mm3 (3.80-5.20); White Blood Cell Count 7.83 K/mm3 (4.00-11.30)
[2018-10-10 05:21] LABS: Mean Corpuscular Volume 97 fL (80-100)
--- NOTE | 2018-10-10 05:26 | NUR ---
SUMMARY: NEW ADMIT COPD EXACERBATION AND PNEUMONIA ON HOSPITALIST SERVICE. VSS, AFEBRILE, 2L O2 VIA NC TO MAINTAIN SPO2 >92%. ENCOURAGE TCDB EFFORT TO CLEAR AIRWAY AND REORIENT PRN. PLAN TO MANAGE PAIN PER HOME ORDERS. RESPIRATORY TREATMENTS ORDERED AND PRN WITH ANTIBIOTICS.
[2018-10-10 05:44] LABS: Bun/Creatinine Ratio 41.1 (12.0-20.0); Calcium, Blood 8.5 mg/dL (8.5-10.1); Creatinine, Blood 1.46 mg/dL (0.40-1.00); Potassium, Blood 5.5 mmol/L (3.5-5.5)
--- NOTE | 2018-10-10 10:03 | NUR ---
PT HAS BEEN VERY COMBATIVE AND AGITATED TODAY. DR LONG HAS ADDED HALDOL. UNABLE TO GIVE ORAL MEDS AT THIS TIME DUE TO THE AGITATION WILL TRY IN A WHILE TO REGIVE MEDS. WILL CONTINUE TO MONITOR.
--- NOTE | 2018-10-10 17:35 | NUR ---
PT STARTED OUT AOX1 AND IS NOW AOX3. PT AT BEGINNING OF SHIFT WAS COMBATIVE AND DISTRESSED. PT WOULD ASK FOR A DRINK OF WATER THEN PUSH AWAY WHEN GIVEN A DRINK. WHEN GIVEN MEDICATION PT WOULD NOT SWALLOW THEM AND THEN SPIT THEM OUT. MEDS WERE HELD IN THE AM. DR CARROLL ORDERED HALDOL. THIS WAS EFFECTIVE AND WAS ABLE TO CALM PT DOWN AND THEN SHE SLEPT THROUGH THE MIDDLE PART OF THE SHIFT. WHEN THE PT AWOKE SHE WAS MUCH CALMER AND BEGAN TO ACCEPT CARE. NEEDED MEDICATION WAS GIVEN AND PT SWALLOWED PILLS WELL. PT WAS ABLE TO EAT AND DRINK AND IS TALKING TO HER CARE GIVERS APPROPRIATELY. WILL CONTINUE TO MONITOR.
--- NOTE | 2018-10-10 19:12 | NUR ---
Mrs. Buitrago was not responsive to voice or touch. No family present at time of visit. Provided presence and comfort through touch. Cook Room Supervisor services will remain available to pt and family.
--- NOTE | 2018-10-11 03:52 | NUR ---
SHIFT SUMMARY PT ADMITTED FOR COPD EXACERBATION FROM [facility]. MAY NEED PLACEMENT IN A SNF. SHE IS ON 2 LPM VIA NC. HX: INOPERABLE PELVIC FRACTURE, CHF, CKD (3), AND COPD. SHE IS INCONTINENT, A&O X3. EARLIER IV LEAKED AT SHIFT CHANGE SO A NEW 20 GAUGE HAS BEEN PLACED IN HER RIGHT UPPER ARM. IT FLUSHES WELL AND IS SALINE LOCKED. SHE HAS NOT BECOME AGITATED THIS SHIFT. SHE HAS SLEPT WELL THROUGHOUT THE NIGHT.
[2018-10-11 05:22] LABS: BASOPHILS PERCENT AUTO 0 % (0-2); EOSINOPHILS PERCENT AUTO 0 % (0-6); Hematocrit 27.7 % (33.0-51.0); Hemoglobin 8.4 g/dL (11.5-16.0); IMMATURE GRAN PERCENT AUTO 3 % (0-1); LYMPHOCYTES ABSOLUTE AUTO 0.66 K/mm3 (0.84-5.20); LYMPHOCYTES PERCENT AUTO 9 % (21-46); MONOCYTES ABSOLUTE AUTO 0.42 K/mm3 (0.16-1.47); MONOCYTES PERCENT AUTO 6 % (4-13); Mean Corpuscular HGB 28.6 pg (26.0-34.0); Mean Corpuscular HGB Conc 30.3 g/dL (31.5-36.5); Mean Platelet Volume 9.3 fL (9.1-12.4); NEUTROPHILS ABSOLUTE AUTO 6.13 K/mm3 (1.96-9.15); NEUTROPHILS PERCENT AUTO 83 % (41-73); NRBC ABSOLUTE 0.11 K/mm3 (0.00-0.02); NRBC Auto 1.5 /100 WBC (0.0-0.2); Platelet Count 314 K/mm3 (150-400); RDW Coefficient Variation 19.8 % (11.7-14.2); RDW Standard Deviation 67.6 fL (35.1-46.3); Red Blood Cell Count 2.94 M/mm3 (3.80-5.20); White Blood Cell Count 7.41 K/mm3 (4.00-11.30)
[2018-10-11 05:23] LABS: Mean Corpuscular Volume 94 fL (80-100)
[2018-10-11 05:37] LABS: Bun/Creatinine Ratio 40.3 (12.0-20.0); Calcium, Blood 8.7 mg/dL (8.5-10.1); Creatinine, Blood 1.49 mg/dL (0.40-1.00); Potassium, Blood 5.3 mmol/L (3.5-5.5)
--- NOTE | 2018-10-11 16:05 | NUR ---
SHIFT SUMMARY NO ACUTE CHANGES. PATIENT MEDICATED SCHEDULED FOR PAIN X1 THIS SHIFT. NO COMPLAINTS OF NAUSEA OR SHORTNESS OF BREATH. PATIENT WORKED WITH PT TODAY. 1 ASSIST W/GAIT BELT AND FWW RECOMMENDED. PATIENT UP IN CHAIR FOR MEALS AND RESTING IN BED THE REST OF SHIFT. POSSIBLE DISCHARGE TO SNF IN THE NEXT FEW DAYS. CALL LIGHT IN REACH, WILL CONTINUE TO MONITOR.
--- NOTE | 2018-10-12 01:12 | NUR ---
PT STATUS PT NOT SLEEPING THIS SHIFT. DEMANDING TO "GET UP AND WALK AROUND". AGITATED DEMEANOR. ATTEMPTED TO REDIRECT/DISTRACT THE PT. WILL CONTINUE TO MONITOR.
--- NOTE | 2018-10-12 04:03 | NUR ---
SHIFT SUMMARY PT HAS NOT HAD A BM SINCE 10/08. IT MAY BE PRUDENT TO ADMINISTER THE MIRALAX TODAY. PT COOPERATIVE THROUGHOUT SHIFT, FOLLOWING INSTRUCTIONS FOR THE MOST PART EXCEPT FOR ONE BRIEF PERIOD OF TIME WHEN SHE INSISTED SHE BE ALLOWED TO GET UP AND WALK AROUND. SHE BECAME AGITATED WHEN NURSING STAFF DISCOURAGED THIS IDEA. THE PT WAS A 2-PERSON ASSIST THROUGHOUT SHIFT W/FWW AND GAIT BELT TO BEDSIDE COMMODE. EVEN SO SHE WAS WEAK AND SHAKY LEGGED ON HER FEET AND SEEMED UNAWARE OF HER OWN LIMITATIONS. 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 PT MAY POSSIBLY DC TO [facility] TODAY, THE DC PACKET IS PREPARED IN THE PT'S LOCKED CABINET. AWAITING THIS MORNING'S LABS TO SEE HER HGB LEVEL, IT HAS BEEN TRENDING DOWN AND WAS LAST MEASURED AT 8.4.
[2018-10-12 05:06] LABS: BASOPHILS ABSOLUTE AUTO 0.01 K/mm3 (0.00-0.23); BASOPHILS PERCENT AUTO 0 % (0-2); EOSINOPHILS PERCENT AUTO 0 % (0-6); Hematocrit 28.5 % (33.0-51.0); Hemoglobin 8.5 g/dL (11.5-16.0); IMMATURE GRAN ABSOLUTE AUTO 0.31 K/mm3 (0.00-0.10); IMMATURE GRAN PERCENT AUTO 4 % (0-1); LYMPHOCYTES PERCENT AUTO 5 % (21-46); MONOCYTES ABSOLUTE AUTO 0.22 K/mm3 (0.16-1.47); MONOCYTES PERCENT AUTO 3 % (4-13); Mean Corpuscular HGB 28.2 pg (26.0-34.0); Mean Corpuscular HGB Conc 29.8 g/dL (31.5-36.5); Mean Corpuscular Volume 95 fL (80-100); Mean Platelet Volume 9.4 fL (9.1-12.4); NEUTROPHILS ABSOLUTE AUTO 6.41 K/mm3 (1.96-9.15); NEUTROPHILS PERCENT AUTO 87 % (41-73); NRBC ABSOLUTE 0.12 K/mm3 (0.00-0.02); NRBC Auto 1.6 /100 WBC (0.0-0.2); Platelet Count 344 K/mm3 (150-400); RDW Coefficient Variation 19.7 % (11.7-14.2); RDW Standard Deviation 66.1 fL (35.1-46.3); Red Blood Cell Count 3.01 M/mm3 (3.80-5.20); White Blood Cell Count 7.35 K/mm3 (4.00-11.30)
--- NOTE | 2018-10-12 05:36 | NUR ---
PT STATUS PT REQUESTED BOWEL CARE SHE FELT SHE WAS CONSTIPATED. I ADMINISTERED PRN MIRALAX THIS MORNING BEFORE SHIFT CHANGE. HER MORNING LABS REVEAL THAT HER HGB HAS RISEN FROM 8.4 YESTERDAY TO 8.[address] HAS WRITTEN IN HER REPORTS THAT BLOOD WILL NOT BE ADMINISTERED UNTIL HGB DOWNTRENDS BELOW 8.0.
[2018-10-12 05:40] LABS: Bun/Creatinine Ratio 44.4 (12.0-20.0); Creatinine, Blood 1.35 mg/dL (0.40-1.00); Potassium, Blood 5.6 mmol/L (3.5-5.5)
[2018-10-12 05:56] LABS: BAND PERCENT MAN 4 % (0-8); BASOPHILS PERCENT MAN 0 % (0-2); EOSINOPHILS PERCENT MAN 0 % (0-6); LYMPHOCYTES ABSOLUTE MAN 0.58 K/mm3 (0.84-5.20); LYMPHOCYTES PERCENT MAN 8 % (21-46); MONOCYTES ABSOLUTE MAN 0.14 K/mm3 (0.16-1.47); MONOCYTES PERCENT MAN 2 % (4-13); NEUTROPHILS ABSOLUTE MAN 6.61 K/mm3 (1.96-9.15); SEG NEUTROPHILS PERCENT MAN 86 % (41-73); TOTAL CELLS COUNTED 100
--- NOTE | 2018-10-12 12:12 | NUR ---
[facility] PER HANNAH WITH [facility]. ORDERS RECEIVED FROM DR. JACK; FAXED TO [facility] AND [facility]. HARD SCRIPT PLACED IN PACKET. W/C VAN ARRANGED WITH [facility] FOR APPROX. 1400. BEDSIDE STEVEN HERRERA AWARE.
[2018-10-12] MEDS ORDERED: CEFU250T47 PO (12:35)
[2018-10-12] MEDS ORDERED: AZIT250 PO (12:36)
[2018-10-12] MEDS ORDERED: ALBU3IS INH (12:37)
[2018-10-12] MEDS ORDERED: NYSTATIN1 EAC1 TOP (12:40)
[2018-10-12] MEDS ORDERED: Humalog100 UNIT/3 SC (12:40)
--- NOTE | 2018-10-12 14:59 | NUR ---
DISCHARGE [facility] REPORT CALLED TO [facility] NURSE. IV REMOVED WITHOUT DIFFICULTY. PATIENT TRANSFERED VIA [facility]. BELONGINGS AND DISCHARGE PACKET WITH PATIENT.
== END 2018-10-12 14:00 | DRG 189 ==
LOC: ER 16:27 → MEDS 19:53 → ENPENDDIS 10-12 11:36 → MEDS 10-12 14:00
PROVIDERS: Emergency Medicine; Internal Medicine; Nurse Practitioner Acute Care; Student in an Organized Health Care Education/Training Program; ADMIT Internal Medicine
DX: J96.01 Acute respiratory failure with hypoxia (principal); S32.10XA Unspecified fracture of sacrum, initial encounter for closed fracture; S32.509A Unspecified fracture of unspecified pubis, initial encounter for closed fracture; S32.9XXA Fracture of unspecified parts of lumbosacral spine and pelvis, initial encounter for closed fracture; J44.1 Chronic obstructive pulmonary disease with (acute) exacerbation; J44.0 Chronic obstructive pulmonary disease with (acute) lower respiratory infection; N17.9 Acute kidney failure, unspecified; G93.49 Other encephalopathy; N39.0 Urinary tract infection, site not specified; I50.32 Chronic diastolic (congestive) heart failure; J20.9 Acute bronchitis, unspecified; I35.0 Nonrheumatic aortic (valve) stenosis; I48.2 Chronic atrial fibrillation; E11.22 Type 2 diabetes mellitus with diabetic chronic kidney disease; E87.5 Hyperkalemia; N18.3 Chronic kidney disease, stage 3 (moderate); D63.1 Anemia in chronic kidney disease; E86.0 Dehydration; F41.9 Anxiety disorder, unspecified; G30.9 Alzheimer's disease, unspecified; F02.80 Dementia in other diseases classified elsewhere, unspecified severity, without behavioral disturbance, psychotic disturbance, mood disturbance, and anxiety; F32.9 Major depressive disorder, single episode, unspecified; M81.0 Age-related osteoporosis without current pathological fracture; M19.90 Unspecified osteoarthritis, unspecified site; I11.0 Hypertensive heart disease with heart failure; E11.51 Type 2 diabetes mellitus with diabetic peripheral angiopathy without gangrene; E78.5 Hyperlipidemia, unspecified; Z66 Do not resuscitate; F17.210 Nicotine dependence, cigarettes, uncomplicated; E66.9 Obesity, unspecified; Z68.35 Body mass index [BMI] 35.0-35.9, adult; Z86.73 Personal history of transient ischemic attack (TIA), and cerebral infarction without residual deficits; Z88.0 Allergy status to penicillin; Z88.8 Allergy status to other drugs, medicaments and biological substances; Z91.011 Allergy to milk products; Z79.899 Other long term (current) drug therapy
CPT/HCPCS: 36415; 71045; 80048; 80053; 82947; 83605; 85025; 85027; 85610; 85730; 87040; 87070; 87077; 87147; 87186; 87205; 93005; 93010; 94640; 94644; 94760; 96365; 96366; 96367; 96375; 97110; 97116; 97162; 97166; 97530; 97535; 99283; 99285-25; J0692; J1630; J2930; J3370; J7030

== ENCOUNTER 2018-11-28 22:29 | Inpatient (IN) | payer MEDICARE, OTHER ==
[~2018-11-28] VITALS: Ht 167.6 cm; Wt 76.0 kg
[~2018-11-28 22:29] MED LIST changes: +AZIT250 PO; +Humalog100 UNIT/3 SC; +NYSTATIN1 EAC1 TOP
[2018-11-28 23:00] LABS: Source, Urine Catheter
[2018-11-28 23:08] LABS: Bilirubin, Urine Neg (Neg); Blood, Urine 1+ (Neg); Glucose Qualitative, Urine Neg (Neg); Ketones, Urine Neg (Neg); Leukocyte Esterase, Urine 1+ (Neg); Nitrite, Urine Neg (Neg); Protein, Urine 1+ (Neg); Specific Gravity, Urine 1.015 (1.003-1.022); Urobilinogen, Urine NORM (Normal)
[2018-11-28 23:11] LABS: BASOPHILS ABSOLUTE AUTO 0.01 K/mm3 (0.00-0.23); BASOPHILS PERCENT AUTO 0 % (0-2); EOSINOPHILS ABSOLUTE AUTO 0.03 K/mm3 (0.00-0.68); EOSINOPHILS PERCENT AUTO 0 % (0-6); Hematocrit 34.7 % (33.0-51.0); Hemoglobin 10.6 g/dL (11.5-16.0); IMMATURE GRAN ABSOLUTE AUTO 0.09 K/mm3 (0.00-0.10); IMMATURE GRAN PERCENT AUTO 1 % (0-1); LYMPHOCYTES ABSOLUTE AUTO 2.22 K/mm3 (0.84-5.20); LYMPHOCYTES PERCENT AUTO 28 % (21-46); MONOCYTES ABSOLUTE AUTO 0.42 K/mm3 (0.16-1.47); MONOCYTES PERCENT AUTO 5 % (4-13); Mean Corpuscular HGB 27.9 pg (26.0-34.0); Mean Corpuscular HGB Conc 30.5 g/dL (31.5-36.5); Mean Corpuscular Volume 91 fL (80-100); Mean Platelet Volume 8.9 fL (9.1-12.4); NEUTROPHILS ABSOLUTE AUTO 5.21 K/mm3 (1.96-9.15); NEUTROPHILS PERCENT AUTO 65 % (41-73); NRBC ABSOLUTE 0.03 K/mm3 (0.00-0.02); NRBC Auto 0.4 /100 WBC (0.0-0.2); Platelet Count 358 K/mm3 (150-400); RDW Coefficient Variation 18.2 % (11.7-14.2); RDW Standard Deviation 60.4 fL (35.1-46.3); White Blood Cell Count 7.98 K/mm3 (4.00-11.30)
[2018-11-28 23:25] LABS: Albumin, Blood 3.7 g/dL (3.4-5.0); Bilirubin, Total 0.5 mg/dL (0.1-1.0); Bun/Creatinine Ratio 29.1 (12.0-20.0); Calcium, Blood 9.3 mg/dL (8.5-10.1); Creatinine, Blood 2.54 mg/dL (0.40-1.00); Globulin, Blood 3.6 g/dL (2.2-4.0); Potassium, Blood 4.6 mmol/L (3.5-5.5); Total Protein, Blood 7.3 g/dL (6.4-8.2)
[2018-11-28 23:26] LABS: Appearance, Urine Clear (Clear); Color, Urine Yellow (P-Yellow)
[2018-11-28 23:27] LABS: Amorphous Light (0-Heavy); Bacteria Rare /hpf; Hyaline Casts 0-2 /lpf (0-2); Red Blood Cells, Urine Rare /hpf (0-2); Squamous Epithelial Cells Not Seen /hpf (Few); White Blood Cells, Urine Rare /hpf (0-5)
[2018-11-28] MEDS ORDERED: FURO20 PO (23:29)
[2018-11-28] MEDS ORDERED: OMEPRAZOLE MAGN20 MG PO (23:30)
[2018-11-29 01:17] LABS: Magnesium, Blood 2.7 mg/dL (1.6-2.4); Troponin I 0.025 ng/mL (0.000-0.040)
[2018-11-29 04:11] LABS: PO2 Arterial 74.8 mmHg (80-100); pH Blood Arterial 7.47 (7.35-7.45)
[2018-11-29 05:28] LABS: Hematocrit 32.8 % (33.0-51.0); Hemoglobin 9.7 g/dL (11.5-16.0); Mean Corpuscular HGB 27.7 pg (26.0-34.0); Mean Corpuscular HGB Conc 29.6 g/dL (31.5-36.5); NRBC ABSOLUTE 0.02 K/mm3 (0.00-0.02); NRBC Auto 0.3 /100 WBC (0.0-0.2); Platelet Count 335 K/mm3 (150-400); RDW Coefficient Variation 18.1 % (11.7-14.2); RDW Standard Deviation 62.2 fL (35.1-46.3); White Blood Cell Count 7.33 K/mm3 (4.00-11.30)
[2018-11-29 05:31] LABS: Mean Corpuscular Volume 94 fL (80-100)
[2018-11-29 05:56] LABS: CPK Creatine Kinase 35 U/L (26-193)
[2018-11-29 05:57] LABS: Albumin, Blood 3.4 g/dL (3.4-5.0); Albumin/Globulin Ratio 1.1 (0.8-1.8); Bilirubin, Total 0.7 mg/dL (0.1-1.0); Bun/Creatinine Ratio 30.5 (12.0-20.0); Calcium, Blood 8.8 mg/dL (8.5-10.1); Creatinine, Blood 2.26 mg/dL (0.40-1.00); Globulin, Blood 3.1 g/dL (2.2-4.0); Potassium, Blood 3.9 mmol/L (3.5-5.5); Total Protein, Blood 6.5 g/dL (6.4-8.2)
--- NOTE | 2018-11-29 18:19 | NUR ---
SHIFT SUMMARY PATIENT ARRIVED AT 1708 FROM THE ED. NONVERBAL AND ONLY RESPONSIVE TO VERBAL STIMULI. WHEN TALKING TO HER SHE WILL OPEN HER EYES AND MUMBLE FOR A FEW SECONDS AND THEN CLOSES HER EYES AGAIN. NS RUNNING @ 75. O2 @ 2L NC, SATS >90%. PATIENT IS NPO. BED ALARM IN PLACE. NO ACUTE CHANGES. RN WILL CONTINUE TO MONITOR.
--- NOTE | 2018-11-29 22:12 | NUR ---
PT WOKE UP AGITATED AND CONFUSED ON WHERE SHE WAS AT AND WHY SHE WAS IN THE HOSPITAL. PT WANTED TO SEE DOCTOR AND SON TERRELL RIGHT AWAY. RN WAS IN ROOM WELL
[2018-11-29] MEDS ORDERED: OSEL75CA PO (22:28)
[2018-11-29] MEDS ORDERED: Tylenol325 MG PO (22:40)
[2018-11-29] MEDS ORDERED: ACET500 (22:41)
[2018-11-29] MEDS ORDERED: ATOR10 PO (22:42)
[2018-11-29] MEDS ORDERED: DULERA 200 MCG/13 GM INH (22:51)
--- NOTE | 2018-11-30 00:28 | NUR ---
PT AWOKE AND WAS AGITATED AND UPSET, DIDN'T WANT TO BE IN HOSPITAL. CHEM BG WAS [address] HARPER NOTIFIED AND HE ORDERED D51/2NS @ 75. CHEM BG @ 0025 WAS 85. INCONT OF URINE. ANYI NOTIFIED OF CONSULT HE SAID TO BLADDER SCAN AND PUT CHRISTIAN IN FOR MORE THAN 350-400ML. POST VOID BLADDER SCAN WAS ZERO. MEPILEX ON COCCYX FOR PREVENTATIVE. PT NOT HAPPY ABOUT BEING NPO. EXPLAINED TO HER WHY BUT SHE IS FORGETFUL. BED ALARM IN USE.
--- NOTE | 2018-11-30 01:15 | NUR ---
PT MOVED TO ROOM 345 AT APPROX 0100. REPORT GIVEN TO LALA HARRIS.
[2018-11-30 06:17] LABS: Alanine Aminotransfer (ALT/SGP 13 U/L (12-78); Albumin, Blood 3.1 g/dL (3.4-5.0); Albumin/Globulin Ratio 0.9 (0.8-1.8); Alk Phos 77 U/L (50-136); Anion Gap 9 mmol/L (6-16); Aspartate Aminotrans (AST/SGOT 14 U/L (12-37); Bilirubin, Total 0.7 mg/dL (0.1-1.0); Blood Urea Nitrogen 43 mg/dL (8-24); Bun/Creatinine Ratio 34.7 (12.0-20.0); CO2, Blood 23 mmol/L (21-32); Calcium, Blood 8.5 mg/dL (8.5-10.1); Chloride, Blood 114 mmol/L (98-108); Creatinine, Blood 1.24 mg/dL (0.40-1.00); Globulin, Blood 3.3 g/dL (2.2-4.0); Glomerular Filtration Rate 43 (60-); Glucose, Blood 95 mg/dL (70-99); Magnesium, Blood 2.4 mg/dL (1.6-2.4); Phosphorus, Blood 2.2 mg/dL (2.5-4.9); Potassium, Blood 3.8 mmol/L (3.5-5.5); Sodium, Blood 146 mmol/L (136-145); Total Protein, Blood 6.4 g/dL (6.4-8.2)
[2018-11-30 06:28] LABS: BASOPHILS ABSOLUTE AUTO 0.03 K/mm3 (0.00-0.23); BASOPHILS PERCENT AUTO 0 % (0-2); EOSINOPHILS ABSOLUTE AUTO 0.23 K/mm3 (0.00-0.68); EOSINOPHILS PERCENT AUTO 3 % (0-6); Hematocrit 32.8 % (33.0-51.0); Hemoglobin 9.8 g/dL (11.5-16.0); IMMATURE GRAN ABSOLUTE AUTO 0.13 K/mm3 (0.00-0.10); IMMATURE GRAN PERCENT AUTO 2 % (0-1); LYMPHOCYTES ABSOLUTE AUTO 2.03 K/mm3 (0.84-5.20); LYMPHOCYTES PERCENT AUTO 25 % (21-46); MONOCYTES ABSOLUTE AUTO 0.48 K/mm3 (0.16-1.47); MONOCYTES PERCENT AUTO 6 % (4-13); Mean Corpuscular HGB 27.3 pg (26.0-34.0); Mean Corpuscular HGB Conc 29.9 g/dL (31.5-36.5); Mean Platelet Volume 9.2 fL (9.1-12.4); NEUTROPHILS ABSOLUTE AUTO 5.13 K/mm3 (1.96-9.15); NEUTROPHILS PERCENT AUTO 64 % (41-73); NRBC ABSOLUTE 0.04 K/mm3 (0.00-0.02); NRBC Auto 0.5 /100 WBC (0.0-0.2); Platelet Count 304 K/mm3 (150-400); RDW Coefficient Variation 18.3 % (11.7-14.2); RDW Standard Deviation 60.5 fL (35.1-46.3); Red Blood Cell Count 3.59 M/mm3 (3.80-5.20); White Blood Cell Count 8.03 K/mm3 (4.00-11.30)
[2018-11-30 06:36] LABS: Mean Corpuscular Volume 91 fL (80-100)
--- NOTE | 2018-11-30 07:11 | NUR ---
alert and orintated to self, noted heel during assessment not sure if it is pressure injury or not, call light in reach, 2L vai nh, infusing d5w
--- NOTE | 2018-11-30 16:23 | NUR ---
SHIFT SUMMARY 88 YR OLD FEMALE ADMITTED FOR ACUTE ENCEPHALOPATHY. HER MENTATION TODAY IS CLEARER, SHE IS ABLE TO RESPOND TO REQUESTS, USES HER CALL BUTTON APPROPRIATELY. SHE IS AN [employer] PT. TODAY HER DIET WAS ADVANCED FROM NPO TO MECHANICAL SOFT. HER FAMILY REPORTS THAT SHE HAS A HX OF POCKETING HER FOOD. SHE IS A RESIDENT OF [facility]. SHE IS MONITORED BY TELEMETRY: SINUS RHYTHM AT 85 BPM 1ST DEGREE AND BBB. HX: CVA, COPD, DEMENTIA, ANXIETY, GERD, HTN, CKD 1, AFIB
--- NOTE | 2018-12-01 01:54 | NUR ---
12/01/18 0150 TALKING IN SLEEP. BED ALARM ON. HAS BEEN ASSISTED UP TO [facility] FOR [place]ID[place] SEVERAL TIMES THIS SHIFT. VITALS REMAIN STABLE. HEART MONITOR REMAINS STABLE WELL.
--- NOTE | 2018-12-01 02:33 | NUR ---
12/01/18 0235 IV ALARMED. RN WENT IN TO CHECK AND FOUND PT HAD REMOVED HER ID BANDS. STATED ID BANDS WERE "TEARING INTO MY SKIN!"NEW ID BANDS APPLIED OVER KOBAN WRAPPED ARM. VITALS STABLE.
[2018-12-01 05:04] LABS: BASOPHILS ABSOLUTE AUTO 0.02 K/mm3 (0.00-0.23); BASOPHILS PERCENT AUTO 0 % (0-2); EOSINOPHILS ABSOLUTE AUTO 0.17 K/mm3 (0.00-0.68); EOSINOPHILS PERCENT AUTO 2 % (0-6); Hematocrit 31.8 % (33.0-51.0); Hemoglobin 9.3 g/dL (11.5-16.0); IMMATURE GRAN ABSOLUTE AUTO 0.11 K/mm3 (0.00-0.10); IMMATURE GRAN PERCENT AUTO 2 % (0-1); LYMPHOCYTES ABSOLUTE AUTO 2.29 K/mm3 (0.84-5.20); LYMPHOCYTES PERCENT AUTO 31 % (21-46); MONOCYTES PERCENT AUTO 5 % (4-13); Mean Corpuscular HGB 27.5 pg (26.0-34.0); Mean Corpuscular HGB Conc 29.2 g/dL (31.5-36.5); Mean Platelet Volume 9.3 fL (9.1-12.4); NEUTROPHILS ABSOLUTE AUTO 4.37 K/mm3 (1.96-9.15); NEUTROPHILS PERCENT AUTO 59 % (41-73); NRBC ABSOLUTE 0.05 K/mm3 (0.00-0.02); NRBC Auto 0.7 /100 WBC (0.0-0.2); Platelet Count 320 K/mm3 (150-400); RDW Coefficient Variation 18.5 % (11.7-14.2); RDW Standard Deviation 63.9 fL (35.1-46.3); Red Blood Cell Count 3.38 M/mm3 (3.80-5.20); White Blood Cell Count 7.36 K/mm3 (4.00-11.30)
[2018-12-01 05:06] LABS: Mean Corpuscular Volume 94 fL (80-100)
[2018-12-01 05:21] LABS: Albumin, Blood 2.9 g/dL (3.4-5.0); Anion Gap 8 mmol/L (6-16); Blood Urea Nitrogen 24 mg/dL (8-24); Bun/Creatinine Ratio 24.8 (12.0-20.0); CO2, Blood 24 mmol/L (21-32); Calcium, Blood 8.6 mg/dL (8.5-10.1); Chloride, Blood 109 mmol/L (98-108); Creatinine, Blood 0.97 mg/dL (0.40-1.00); Glomerular Filtration Rate 58 (60-); Glucose, Blood 118 mg/dL (70-99); Magnesium, Blood 2.1 mg/dL (1.6-2.4); Phosphorus, Blood 1.6 mg/dL (2.5-4.9); Potassium, Blood 3.5 mmol/L (3.5-5.5); Sodium, Blood 141 mmol/L (136-145)
--- NOTE | 2018-12-01 05:35 | NUR ---
12/01/18 0530 SLEPT ON AND OFF. FREQUENTLY TALKING IN DREAMS. CAN BE IRRITABLE AT TIMES WHEN DOING NURSING TASKS. DOESN'T WANT TO BE "BOTHERED." VITALS AND HEART MONITOR STABLE.
--- NOTE | 2018-12-01 12:20 | NUR ---
IV LEAKING/DC'D. DELAY IN ADMINISTERING SOD/D5 IV FLUID IS DUE TO PT'S IV LEAKING AND HAVING TO BE DC'D. PT HAS A HX OF IV'S GOING BAD: INFILTRATING, LEAKING. PT'S ARMS ECCYMOTIC FROM PREVIOUS IV'S, ETC. CALLED CHARGE TO ATTEMPT NEW IV ADMINISTRATION. ORDERED IV MEDICATIONS WILL BE RESUMED WHEN NEW IV IS IN PLACE AND FUNCTIONAL.
--- NOTE | 2018-12-01 16:47 | NUR ---
SHIFT SUMMARY PT ADMITTED FOR ACUTE ENCEPHALOPATHY. DNR. 2 LPM O2. PREVIOUSLY FROM [facility]. MECHANICAL SOFT DIET- POCKETS FOOD. PT EXPERIENCED SEVERAL EPISODES OF ANXIETY TODAY, THE FIRST EPISODE WHEN NURSING STAFF ATTEMPTED TO INSERT A NEW IV AND THE SECOND WHEN SHE REMOVED HER OYSTER FISHERMAN LEADS. HER HEART RATE INCREASED TO 130'S-170'S DURING THESE EPISODES ACCORDING TO PCU ADMINISTRATIVE RECEPTIONIST. PATIENT STATED THAT SHE WANTED NO MORE INVASIVE PROCEDURES AND BECAME VERY UPSET. STAFF HAD DIFFICULTY CALMING HER. [facility] WAS NOTIFIED. THE DOCTOR DC'D IV FLUIDS, ORDERING NO IV ACCESS AND DC'D TELEMETRY MONITORING. PT HAS HAD SEVERAL LOOSE STOOLS TODAY, BUT NOW THAT IV FLUIDS/ELECTROLYTES HAVE BEEN DC'D WE WILL CONTINUE TO MONITOR THAT.
--- NOTE | 2018-12-01 23:27 | NUR ---
2299 UP TO BSC AFTER INCONTINENT OF URINE AND STOOL IN ATTENDS. NO VOIDING IN BSC. BLADDER SCAN = 37 ML. ABDOMEN SOFT.
[2018-12-02 05:00] LABS: BASOPHILS ABSOLUTE AUTO 0.02 K/mm3 (0.00-0.23); BASOPHILS PERCENT AUTO 0 % (0-2); EOSINOPHILS ABSOLUTE AUTO 0.15 K/mm3 (0.00-0.68); EOSINOPHILS PERCENT AUTO 2 % (0-6); Hematocrit 31.6 % (33.0-51.0); Hemoglobin 9.4 g/dL (11.5-16.0); IMMATURE GRAN ABSOLUTE AUTO 0.22 K/mm3 (0.00-0.10); IMMATURE GRAN PERCENT AUTO 3 % (0-1); LYMPHOCYTES ABSOLUTE AUTO 1.99 K/mm3 (0.84-5.20); LYMPHOCYTES PERCENT AUTO 31 % (21-46); MONOCYTES ABSOLUTE AUTO 0.48 K/mm3 (0.16-1.47); MONOCYTES PERCENT AUTO 7 % (4-13); Mean Corpuscular HGB 27.5 pg (26.0-34.0); Mean Corpuscular HGB Conc 29.7 g/dL (31.5-36.5); Mean Corpuscular Volume 92 fL (80-100); Mean Platelet Volume 8.9 fL (9.1-12.4); NEUTROPHILS ABSOLUTE AUTO 3.59 K/mm3 (1.96-9.15); NEUTROPHILS PERCENT AUTO 56 % (41-73); NRBC ABSOLUTE 0.05 K/mm3 (0.00-0.02); NRBC Auto 0.8 /100 WBC (0.0-0.2); Platelet Count 301 K/mm3 (150-400); RDW Coefficient Variation 18.7 % (11.7-14.2); RDW Standard Deviation 62.2 fL (35.1-46.3); Red Blood Cell Count 3.42 M/mm3 (3.80-5.20); White Blood Cell Count 6.45 K/mm3 (4.00-11.30)
[2018-12-02 05:23] LABS: Magnesium, Blood 1.9 mg/dL (1.6-2.4)
[2018-12-02 05:25] LABS: Anion Gap 10 mmol/L (6-16); Blood Urea Nitrogen 18 mg/dL (8-24); Bun/Creatinine Ratio 16.5 (12.0-20.0); CO2, Blood 22 mmol/L (21-32); Calcium, Blood 8.5 mg/dL (8.5-10.1); Chloride, Blood 109 mmol/L (98-108); Creatinine, Blood 1.09 mg/dL (0.40-1.00); Glomerular Filtration Rate 50 (60-); Glucose, Blood 97 mg/dL (70-99); Phosphorus, Blood 2.6 mg/dL (2.5-4.9); Potassium, Blood 3.4 mmol/L (3.5-5.5); Sodium, Blood 141 mmol/L (136-145)
--- NOTE | 2018-12-02 05:49 | NUR ---
12/02/18 0545 PT IRRITATED ABOUT BEING WOKE THIS AM AND IS REFLECTED IN VITALS. INCONTINENT OF URINE AND SMALL BROWN BM. GOOD PARVIZ-CARE GIVEN. PT HAS HISTORY OF IRRITABLITY AND REFUSES CARE AT TIMES. ENCOURAGED ORAL INTAKE WITH MEDS THIS AM BUT REFUSED TO DRINK MORE. TURNED Q 2 HOURS.
[2018-12-02] MEDS ORDERED: Suppository1 EACH PR (07:38)
--- NOTE | 2018-12-02 11:03 | NUR ---
PER DR OLMOS NO FURTHER LAB DRAWS. PT HAS SCATTERED BRUISING TO BUE.
[2018-12-02] MEDS ORDERED: DULERA 200 MCG/13 GM INH (15:08)
--- NOTE | 2018-12-02 15:18 | NUR ---
DR OLMOS NOTIFIED OF PT'S HOME MEDICATIONS NOT ORDERED. VERBAL ORDERS TO PLACE SELECTED HOME MEDICATIONS THAT WERE REVIEWED WITH DR OLMOS. I ALSO SPOKE WITH PT DR EWELINA MORLEY WHO ALSO MENTIONED THE POSIBILITY OF TAKING PT HOME ON HOSPICE, STATES PT HAS BEEN OUT OF THE HOSPITAL, LONG-TERM, AND [facility] MULTIPLE TIMES IN THE PAST FEW MONTHS AND HAS NOTICED A DECLINE IN PT. DR OLMOS NOTIFIED OF THIS POSIBILITY, PALLIATIVE CARE CONSULT IS IN PLACE.
--- NOTE | 2018-12-02 16:33 | NUR ---
SHIFT SUMMARY- PT A/O X2, PERSON AND PLACE. PT DROWSY THIS AM AND EVENING, PT WOULD OPEN EYES THEN GO BACK TO SLEEP. PT DID GET UP TO [facility] [place] AND DID EAT. PT MEDICATED X1 WITH TYLENOL FOR HEADACHE. PER DR OLMOS NO MORE LAB DRAWS DUE TO BRUISING UP BUE. LS DIMINISHED, ON RA. PT HAS BEEN TACHY BUT NOTED TO NOT HAVE HOME METORPOLOL ORDERED, HOME MEDICATIONS HAVE BEEN ORDERED. PT IRRITABLE AT TIMES AND REFUSES THINGS. PT DAUGHTER IN LAW AND SON HAVE BEEN IN TO SEE PT AND HAVE VOICED PT HAS MADE IT KNOWN TO THEM THAT SHE IS DONE AND WANTS TO BE WITH HOME LATE SPOUSE WHO PASSED IN JANUARY OF 2018, PALLIATIVE CARE HAS BEEN CONSULTED AND SPOKE WITH SON. PT NOTED TO HAVE LIQUID STOOLS, SENT FOR CDIFF BUT NEGATIVE, DAUGHTER IN LAW REPORTS PT IS LACTOSE INTOLERANT, LACTOSE FREE DIET ORDERED WELL LACTAID. NO OTHER ACUTE CHANGES THIS SHIFT.
--- NOTE | 2018-12-02 17:08 | NUR ---
REPORT GIVEN TO STEVEN PETERSON. PT TO MOVE TO ROOM 357 WHEN CLEAN, SON NOTIFIED.
--- NOTE | 2018-12-02 17:30 | NUR ---
INITIAL PAL CARE VISIT. Called to room by RN who reports pt's son in room with many questions re: plans and goals of care and current update on pt status, declining meals, hydration, medications, therapy and care. Extended visit with pt's sonJohn outside of room after visit in the room. Pt was sound asleep or unresponsive to voice and touch. She does not appear in pain with no movement but son reports that she does display nonverbal indicators of pain such as grimacing and groaning frequently and with attmepts to reposition, provide care. Pt has had a complicated Winter with falls, fx pelvis, multiple hospital admissions and NH stay as well as attempts to return to [facility] twice or more only lasting 10-18 hours before being sent back to the hospital due to worsening renal failure, dehydration or other issues. Pt's a year ago and Son reports his mom has verbalized for some time that she wants to be with her , does not want to eat, by rehydrated, do PT/OT, receive care. At one time she lived with son and DIL who both have some medical background and comfort with providing care. She was placed in [facility] because pt verbalized feeling like a burden and wanted to try living elsewhere at the time. Son and I discussed multiple options/settings for care. He verbalized wanting to support his mom's expressed wishes for EOL care and support. Plan made with son to speak with CM and [facility] resident care aid re: their wishes. I placed an order for case management social worker with notes re: above and also called and spoke to JENNY Wharton coordinator with above info. Son would like [facility] if pt qualifies for hospice. He is thinking he would prefer to take pt to his own home but is open to other possibilites and exploring them. I asked him to check in /[facility] to see if that remains an option on d/c with the support of HH or Hospice to aid in final decision making. Plan to f/u with [facility] staff, CM and family tomorrow and further assess pt for s/s and her abilty to participate in dc planning of choice at this time.
--- NOTE | 2018-12-02 18:25 | NUR ---
PT TRANSFERED TO ROOM 357.
--- NOTE | 2018-12-02 19:33 | NUR ---
pt arrived to room 357 from room 345 around 1800, the pt was oriented to the room layout and call system, the pt was given dinner, the pt appeared to be breathing easily on ra
--- NOTE | 2018-12-03 05:05 | NUR ---
VSS. AFEBROLE, ALERT AT TIMES, CONFUSED, FORGETFUL, SLEPT DEEPLY DURING THE NOC, SNORING SOFTLY, NO COMPLAINTS, WILL REPORT TO ON-COMING SHIFT.
--- NOTE | 2018-12-03 06:29 | NUR ---
DR DE SANTIAGO HAS ORDERED SEVERAL LABS TO BE DRAWN FOR THIS PT. HOWEVER, THERE IS A LARGE NOTE ON THE CHART THAT INDICATES THAT THERE SHOULD BE NO LAB DRAWS ON THIS PT UNLESS APPROVED BY DR OLMOS. THE NATURE OF THE MISCOMMUNICATION IS UNCLEAR. WILL REPORT TO ON-COMING SHIFT.
[2018-12-03] MEDS ORDERED: LORA1 PO (11:56)
[2018-12-03] MEDS ORDERED: MORP20L PO (11:58)
--- NOTE | 2018-12-03 18:27 | NUR ---
SHIFT SUMMARY PT A&O TO SELF, FAMILY AND SURROUNDING. PT CALLS OUT FOR ASSISTANTS INSTEAD OF USING CALL LIGHT. 1-2 PERSON ASSIST WITH FWW TO CHAIR BSC. PT DENIES SOB , PAIN AND N/V DURING SHIFT. PLANS TO RETURN TO [facility] ON HOSPICE TOMORROW AND NURSE EVALUATES. AM LAB ORDERED, DR OLMOS NOTIFIED, NEW ORDERS TO DISCONTINUE. HELD DISCHARGE TODAY DUE TO [facility] NEEDING TO COME RE-EVALUATE PT. PT CONTINUES TO HAVE DIARRHEA. VSS. NO OTHER ACUTE CHANGES NOTED DURING SHIFT. WILL CONTINUE TO MONITOR UNTIL REPORT GIVEN TO ONCOMING RN.
--- NOTE | 2018-12-04 05:17 | NUR ---
VSS, AFEBRILE, ALERT, CONFUSED, INCONT OVERNOC THAT INCLUDED A SMALL AMOUNT OF LOOSE STOOLS. PT IS FORGETFUL, PLEASANTLY CONFUSED, AND UNABLE TO STAND/AMBULATE W/OUT ASSISTANCE. NO IV - MD AWARE. MAY D/C TODAY.
--- NOTE | 2018-12-04 10:25 | NUR ---
PT. BATHED AND CLEAN GOWN AND ATTENDS PLACED. REPORT CALLED TO JULIO C HARRIS AT [facility]. PT. TRANSFERRED VIA [facility].
== END 2018-12-04 10:25 | disposition home or self-care (01) | DRG 682 ==
LOC: ER 22:29 → MEDS 11-29 03:48 → ERHOLD 11-29 03:48 → MEDS 11-29 14:25 → ENPENDDIS 12-03 11:49 → MEDS 12-04 10:25
PROVIDERS: Emergency Medicine; Hospitalist; Internal Medicine Nephrology; ADMIT Internal Medicine
DX: N17.9 Acute kidney failure, unspecified (principal); G93.41 Metabolic encephalopathy; I13.0 Hypertensive heart and chronic kidney disease with heart failure and stage 1 through stage 4 chronic kidney disease, or unspecified chronic kidney disease; F02.81 Dementia in other diseases classified elsewhere, unspecified severity, with behavioral disturbance; F05 Delirium due to known physiological condition; G30.1 Alzheimer's disease with late onset; Z51.5 Encounter for palliative care; E78.5 Hyperlipidemia, unspecified; I35.0 Nonrheumatic aortic (valve) stenosis; K21.9 Gastro-esophageal reflux disease without esophagitis; Z86.73 Personal history of transient ischemic attack (TIA), and cerebral infarction without residual deficits; J44.9 Chronic obstructive pulmonary disease, unspecified; I73.9 Peripheral vascular disease, unspecified; G89.29 Other chronic pain; I48.91 Unspecified atrial fibrillation; M81.0 Age-related osteoporosis without current pathological fracture; E11.22 Type 2 diabetes mellitus with diabetic chronic kidney disease; N18.3 Chronic kidney disease, stage 3 (moderate); I50.9 Heart failure, unspecified; Z66 Do not resuscitate; D63.1 Anemia in chronic kidney disease; E87.6 Hypokalemia
CPT/HCPCS: 36415; 36600; 70450; 71045; 76770; 80053; 80069; 81001; 82550; 82803; 82947; 83605; 83735; 83880; 84100; 84484; 85014; 85018; 85025; 85027; 85730; 87040; 87086; 87493; 93005; 93010; 94640; 94760; 96360; 96361; 99285-25; J0881; J1650; J7030; J7042; J7060; J7070; P9612

== ENCOUNTER 2019-03-13 08:51 | Emergency (ER) | payer MEDICARE, OTHER ==
[~2019-03-13] VITALS: Ht 165.1 cm; Wt 81.7 kg
[~2019-03-13 08:51] MED LIST changes: +ACET500; +LORA1 PO; +MORP20L PO; +OSEL75CA PO; +Suppository1 EACH PR; +Tylenol325 MG PO
[2019-03-13 09:16] LABS: BASOPHILS ABSOLUTE AUTO 0.03 K/mm3 (0.00-0.23); BASOPHILS PERCENT AUTO 0 % (0-2); EOSINOPHILS ABSOLUTE AUTO 0.14 K/mm3 (0.00-0.68); EOSINOPHILS PERCENT AUTO 2 % (0-6); Hematocrit 29.3 % (33.0-51.0); Hemoglobin 8.7 g/dL (11.5-16.0); IMMATURE GRAN ABSOLUTE AUTO 0.04 K/mm3 (0.00-0.10); IMMATURE GRAN PERCENT AUTO 1 % (0-1); LYMPHOCYTES ABSOLUTE AUTO 1.51 K/mm3 (0.84-5.20); LYMPHOCYTES PERCENT AUTO 21 % (21-46); MONOCYTES ABSOLUTE AUTO 0.46 K/mm3 (0.16-1.47); MONOCYTES PERCENT AUTO 6 % (4-13); Mean Corpuscular HGB 26.4 pg (26.0-34.0); Mean Corpuscular HGB Conc 29.7 g/dL (31.5-36.5); Mean Corpuscular Volume 89 fL (80-100); Mean Platelet Volume 9.2 fL (9.1-12.4); NEUTROPHILS ABSOLUTE AUTO 5.11 K/mm3 (1.96-9.15); NEUTROPHILS PERCENT AUTO 70 % (41-73); Platelet Count 335 K/mm3 (150-400); RDW Coefficient Variation 17.5 % (11.7-14.2); RDW Standard Deviation 56.7 fL (35.1-46.3); White Blood Cell Count 7.29 K/mm3 (4.00-11.30)
[2019-03-13] MEDS ORDERED: ATROPINE SULFATE2 ML PO (09:18)
[2019-03-13 09:36] LABS: Alanine Aminotransfer (ALT/SGP 10 U/L (12-78); Albumin, Blood 3.2 g/dL (3.4-5.0); Alk Phos 58 U/L (50-136); Anion Gap 5 mmol/L (6-16); Aspartate Aminotrans (AST/SGOT 8 U/L (12-37); Bilirubin, Total 0.5 mg/dL (0.1-1.0); Blood Urea Nitrogen 27 mg/dL (8-24); CO2, Blood 26 mmol/L (21-32); Calcium, Blood 8.6 mg/dL (8.5-10.1); Chloride, Blood 109 mmol/L (98-108); Creatinine, Blood 1.08 mg/dL (0.40-1.00); Globulin, Blood 3.3 g/dL (2.2-4.0); Glomerular Filtration Rate 51 (60-); Glucose, Blood 120 mg/dL (70-99); Potassium, Blood 4.9 mmol/L (3.5-5.5); Sodium, Blood 140 mmol/L (136-145); Total Protein, Blood 6.5 g/dL (6.4-8.2); Troponin I <0.015 ng/mL (0.000-0.040)
== END 2019-03-13 11:37 | disposition home or self-care (01) ==
LOC: ER 08:51
PROVIDERS: Emergency Medicine
DX: R07.9 Chest pain, unspecified (principal); I12.9 Hypertensive chronic kidney disease with stage 1 through stage 4 chronic kidney disease, or unspecified chronic kidney disease; J44.9 Chronic obstructive pulmonary disease, unspecified; F41.9 Anxiety disorder, unspecified; K21.9 Gastro-esophageal reflux disease without esophagitis; N18.3 Chronic kidney disease, stage 3 (moderate); E11.22 Type 2 diabetes mellitus with diabetic chronic kidney disease; E78.5 Hyperlipidemia, unspecified; Z79.899 Other long term (current) drug therapy; Z88.0 Allergy status to penicillin
CPT/HCPCS: 71046; 80053; 84484; 85025; 93005; 93010; 99285-25

== ENCOUNTER → 2019-04-21 | Outpatient (CLI) | payer MEDICARE, OTHER ==
[~2019-04-21] MED LIST changes: +ATROPINE SULFATE2 ML PO
== END | disposition home or self-care (01) ==
LOC: LAB SHORT 10:11 → PLD 10:11
DX: D48.5 Neoplasm of uncertain behavior of skin (principal)
CPT/HCPCS: 88305

== ENCOUNTER 2019-09-02 09:45 | Emergency (ER) | payer MEDICARE, OTHER ==
[~2019-09-02] VITALS: Ht 167.6 cm; Wt 77.1 kg
[2019-09-02 10:07] LABS: BASOPHILS ABSOLUTE AUTO 0.03 K/mm3 (0.00-0.23); BASOPHILS PERCENT AUTO 0 % (0-2); EOSINOPHILS ABSOLUTE AUTO 0.22 K/mm3 (0.00-0.68); EOSINOPHILS PERCENT AUTO 3 % (0-6); Hematocrit 34.7 % (33.0-51.0); Hemoglobin 10.1 g/dL (11.5-16.0); IMMATURE GRAN ABSOLUTE AUTO 0.07 K/mm3 (0.00-0.10); IMMATURE GRAN PERCENT AUTO 1 % (0-1); LYMPHOCYTES ABSOLUTE AUTO 1.77 K/mm3 (0.84-5.20); LYMPHOCYTES PERCENT AUTO 22 % (21-46); MONOCYTES ABSOLUTE AUTO 0.32 K/mm3 (0.16-1.47); MONOCYTES PERCENT AUTO 4 % (4-13); Mean Corpuscular HGB 23.8 pg (26.0-34.0); Mean Corpuscular HGB Conc 29.1 g/dL (31.5-36.5); Mean Corpuscular Volume 82 fL (80-100); Mean Platelet Volume 9.4 fL (9.1-12.4); NEUTROPHILS ABSOLUTE AUTO 5.48 K/mm3 (1.96-9.15); NEUTROPHILS PERCENT AUTO 69 % (41-73); NRBC ABSOLUTE 0.02 K/mm3 (0.00-0.02); NRBC Auto 0.3 /100 WBC (0.0-0.2); Platelet Count 359 K/mm3 (150-400); RDW Standard Deviation 58.4 fL (35.1-46.3); Red Blood Cell Count 4.24 M/mm3 (3.80-5.20); White Blood Cell Count 7.89 K/mm3 (4.00-11.30)
[2019-09-02 10:24] LABS: Albumin, Blood 3.5 g/dL (3.4-5.0); Albumin/Globulin Ratio 0.9 (0.8-1.8); Bilirubin, Total 0.5 mg/dL (0.1-1.0); Bun/Creatinine Ratio 23.5 (12.0-20.0); Calcium, Blood 9.1 mg/dL (8.5-10.1); Creatinine, Blood 1.19 mg/dL (0.40-1.00); Globulin, Blood 3.9 g/dL (2.2-4.0); Potassium, Blood 4.8 mmol/L (3.5-5.5); Total Protein, Blood 7.4 g/dL (6.4-8.2)
== END 2019-09-02 13:33 | disposition home or self-care (01) ==
LOC: ER 09:45
PROVIDERS: Emergency Medicine
DX: G93.40 Encephalopathy, unspecified (principal); R41.82 Altered mental status, unspecified; J44.9 Chronic obstructive pulmonary disease, unspecified; F41.9 Anxiety disorder, unspecified; E11.22 Type 2 diabetes mellitus with diabetic chronic kidney disease; I12.9 Hypertensive chronic kidney disease with stage 1 through stage 4 chronic kidney disease, or unspecified chronic kidney disease; N18.3 Chronic kidney disease, stage 3 (moderate); I48.91 Unspecified atrial fibrillation; E11.51 Type 2 diabetes mellitus with diabetic peripheral angiopathy without gangrene; I73.9 Peripheral vascular disease, unspecified; E78.5 Hyperlipidemia, unspecified; Z86.73 Personal history of transient ischemic attack (TIA), and cerebral infarction without residual deficits; Z91.011 Allergy to milk products; Z88.0 Allergy status to penicillin; Z88.8 Allergy status to other drugs, medicaments and biological substances; Z79.82 Long term (current) use of aspirin; Z79.899 Other long term (current) drug therapy
CPT/HCPCS: 70450; 80053; 85025; 93005; 93010; 99285-25